=== PATIENT | male | born 1945 | race Caucasian/White ===

== ENCOUNTER → 2016-12-17 | Outpatient (REF) | payer MEDICARE ==
[~2016-12-17] MED LIST: ALDA25TA2 PO; ALLO100T PO; ALTA1CAP3 PO; AMLO25TA PO; ATEN50TA2 PO; CIPR-249 PO; CLAR10CA3 PO; COUM2.5T17 PO; FLAG500T PO; FLON0.054; HYDR-3713 PO; LASI80TA PO; PRAV80TA2 PO; ZYLO300T4 PO
[2016-12-17 13:50] LABS: ALBUMIN 3.8 GM/DL (3.2-5.2); ALBUMIN/GLOBULIN RATIO 1.09 (1.00-1.93); BILIRUBIN,TOTAL 0.4 MG/DL (0.2-1.0); CALCIUM LEVEL 9.5 MG/DL (8.8-10.2); CREATININE FOR GFR 1.47 MG/DL (0.70-1.30); FREE T4 1.11 NG/DL (0.76-1.46); GLOMERULAR FILTRATION RATE 50.1 (>42); POTASSIUM SERUM 4.6 MEQ/L (3.5-5.1); TOTAL PROTEIN 7.3 GM/DL (6.4-8.2)
== END ==
LOC: M SFHCPLAZ 10:01
PROVIDERS: ATTEND Family Medicine
DX: I10 Essential (primary) hypertension (principal); E13.9 Other specified diabetes mellitus without complications; E78.2 Mixed hyperlipidemia

== ENCOUNTER → 2017-04-10 | Outpatient (REF) | payer MEDICARE ==
[2017-04-10 13:52] LABS: ALBUMIN 3.7 GM/DL (3.2-5.2); ALBUMIN/GLOBULIN RATIO 1.03 (1.00-1.93); ALKALINE PHOSPHATASE 94 U/L (45-117); ALT/SGPT 25 U/L (12-78); ANION GAP 7 MEQ/L (8-16); AST/SGOT 25 U/L (7-37); BILIRUBIN,TOTAL 0.5 MG/DL (0.2-1.0); BLOOD UREA NITROGEN 37 MG/DL (7-18); CALCIUM LEVEL 9.4 MG/DL (8.8-10.2); CARBON DIOXIDE LEVEL 33 MEQ/L (21-32); CHLORIDE LEVEL 100 MEQ/L (98-107); CREATININE FOR GFR 1.59 MG/DL (0.70-1.30); GLOMERULAR FILTRATION RATE 45.8 (>42); GLUCOSE, FASTING 129 MG/DL (70-100); POTASSIUM SERUM 4.2 MEQ/L (3.5-5.1); SODIUM LEVEL 140 MEQ/L (136-145); TOTAL PROTEIN 7.3 GM/DL (6.4-8.2)
[2017-04-10 14:14] LABS: ESTIMATED AVERAGE GLUCOSE 163 MG/DL (60-110); HEMOGLOBIN A1c 7.3 %
== END ==
LOC: M SFHCPLAZ 09:35
DX: E11.22 Type 2 diabetes mellitus with diabetic chronic kidney disease (principal); Z12.11 Encounter for screening for malignant neoplasm of colon
CPT/HCPCS: 80053

== ENCOUNTER 2017-05-16 10:59 | Day surgery (SDC) | payer MEDICARE ==
[~2017-05-16 10:59] MED LIST changes: -ALDA25TA2 PO; -ALLO100T PO; -ALTA1CAP3 PO; -AMLO25TA PO; -ATEN50TA2 PO; -CIPR-249 PO; -CLAR10CA3 PO; -COUM2.5T17 PO; -FLAG500T PO; -FLON0.054; -HYDR-3713 PO; -LASI80TA PO; +LIDOCAINE 2% MDV 20 ML VIAL As Ordered; -PRAV80TA2 PO; +PROPOFOL 200 MG/20 ML VIAL As Ordered; -ZYLO300T4 PO
[2017-05-16] MEDS: NS 1,000 ML IV (12:35)
== END 2017-05-16 14:30 | disposition home or self-care (01) ==
LOC: M OPP 10:59
DX: R19.5 Other fecal abnormalities (principal); K62.5 Hemorrhage of anus and rectum; K62.1 Rectal polyp; K57.30 Diverticulosis of large intestine without perforation or abscess without bleeding; I48.91 Unspecified atrial fibrillation; I11.0 Hypertensive heart disease with heart failure; I50.9 Heart failure, unspecified; E78.5 Hyperlipidemia, unspecified; E11.9 Type 2 diabetes mellitus without complications; M10.9 Gout, unspecified; M19.90 Unspecified osteoarthritis, unspecified site; M54.9 Dorsalgia, unspecified; F32.9 Major depressive disorder, single episode, unspecified; I63.9 Cerebral infarction, unspecified; G47.8 Other sleep disorders; G47.30 Sleep apnea, unspecified; R06.83 Snoring; E66.9 Obesity, unspecified; Z88.8 Allergy status to other drugs, medicaments and biological substances; Z88.0 Allergy status to penicillin; Z79.01 Long term (current) use of anticoagulants; Z79.899 Other long term (current) drug therapy; Z79.84 Long term (current) use of oral hypoglycemic drugs; Z80.8 Family history of malignant neoplasm of other organs or systems; Z80.42 Family history of malignant neoplasm of prostate
CPT/HCPCS: 45385

== ENCOUNTER → 2017-09-16 | Outpatient (REF) | payer MEDICARE ==
[2017-09-16 12:04] LABS: ANION GAP 10 MEQ/L (8-16); BLOOD UREA NITROGEN 28 MG/DL (7-18); CALCIUM LEVEL 8.8 MG/DL (8.8-10.2); CARBON DIOXIDE LEVEL 30 MEQ/L (21-32); CHLORIDE LEVEL 105 MEQ/L (98-107); CREATININE FOR GFR 1.53 MG/DL (0.70-1.30); GLOMERULAR FILTRATION RATE 47.7 (>42); GLUCOSE, FASTING 111 MG/DL (70-100); POTASSIUM SERUM 3.7 MEQ/L (3.5-5.1); SODIUM LEVEL 145 MEQ/L (136-145); URIC ACID 8.2 MG/DL (3.5-7.2)
[2017-09-16 13:19] LABS: ESTIMATED AVERAGE GLUCOSE 166 MG/DL (60-110); HEMOGLOBIN A1c 7.4 %
[2017-09-16 14:12] LABS: CREATININE, URINE 34.7 MG/DL; MALB URINE SIEMENS 16.8 MG/L; MAU/CREAT RATIO 48.4 MCG/MG (0.0-30.0)
== END ==
LOC: M SFHCPLAZ 08:29
DX: E11.29 Type 2 diabetes mellitus with other diabetic kidney complication (principal); N18.3 Chronic kidney disease, stage 3 (moderate)
CPT/HCPCS: 84550

== ENCOUNTER 2018-07-28 07:40 | Emergency (ER) | payer MEDICARE ==
[~2018-07-28] VITALS: Ht 172.7 cm; Wt 161.7 kg
[~2018-07-28 07:40] MED LIST changes: +ALDA25TA2 PO; +ALLO100T PO; +ALTA1CAP3 PO; +AMLO25TA PO; +ATEN50TA2 PO; +CIPR-249 PO; +CLAR10CA3 PO; +COUM2.5T17 PO; +FLAG500T PO; +FLON0.054; +HYDR-3713 PO; +LASI80TA3 PO; -LIDOCAINE 2% MDV 20 ML VIAL As Ordered; +PRAV80TA2 PO; -PROPOFOL 200 MG/20 ML VIAL As Ordered; +ZYLO300T6 PO
[2018-07-28] MEDS ORDERED: METF500T4 (07:50)
[2018-07-28] MEDS ORDERED: METO1TAB7 (07:50)
--- NOTE | 2018-07-28 09:10 | REP ---
Soft-tissue neck ultrasound: History: Posterior neck swelling for multiple years, worse times 1 week. No comparison imaging. Sonographic findings: Scanning in the left posterior neck in the region of the palpable painful area demonstrates a 3.1 x 2.1 x 2.6 cm heterogeneous somewhat hypoechoic solid lesion without internal Doppler flow. There are several internal echogenic foci suggesting possible calcifications. There is mild wall irregularity. The adjacent fat appears hyperechoic suggesting inflammation. There is enhanced through transmission. Impression: 3.1 cm sonographically solid lesion. No flow seen. Possibilities include sebaceous cyst, possibly infected sebaceous cyst. Possibly Abscess. Less likely enlarged lymph node. Electronically Signed by Trung Bernal MD 07/28/2018 07:12 P
[2018-07-28 09:40] LABS: HEMATOCRIT 44.5 % (42.0-52.0); MEAN CORPUSCULAR HEMOGLOBIN 29.4 pg (27.0-33.0); MEAN CORPUSCULAR HGB CONC 31.5 g/dl (32.0-36.5); MEAN CORPUSCULAR VOLUME 93.3 fl (80.0-96.0); PLATELET COUNT, AUTOMATED 289 10^3/uL (150-450); RED BLOOD COUNT 4.77 10^6/uL (4.30-6.10); WHITE BLOOD COUNT 8.5 10^3/uL (4.0-10.0)
[2018-07-28 09:52] LABS: INR 2.05; PROTHROMBIN TIME 23.5 SECONDS (12.1-14.4)
[2018-07-28 09:53] LABS: PARTIAL THROMBOPLASTIN TIME 39.7 SECONDS (25.4-37.6)
[2018-07-28 10:21] LABS: CALCIUM LEVEL 9.3 MG/DL (8.8-10.2); CREATININE FOR GFR 1.51 MG/DL (0.70-1.30); GLOMERULAR FILTRATION RATE 48.3 (>42); POTASSIUM SERUM 3.9 MEQ/L (3.5-5.1)
[2018-07-28] MEDS ORDERED: ISOVUE-370 76% 100ML VIAL (Q9967) As Ordered ONE (10:23)
[2018-07-28] MEDS ORDERED: CLEO300C2 PO (11:10)
--- NOTE | 2018-07-28 11:16 | REP ---
CT NECK WITH CONTRAST: HISTORY: Left posterior neck mass. CONTRAST: Isovue 370, 75 mL. A BB was placed on the left side of the neck at the level of the foramen magnum. The naso-, yonis-, and hypopharynx, larynx and subglottic trachea are normal in appearance. The salivary and thyroid glands are normal in size and density. A ring enhancing mass is present in the left posterior subcutaneous tissue at the level of the C2 vertebral body. The mass measures 2.8 cm in transverse by 2.7 cm in AP by 3.2 cm in cephalocaudal dimensions. A small amount of surrounding edema is present. Small lymph nodes less than 1 cm in size are present in the internal jugular chains, posterior triangles, and submandibular areas. Atherosclerotic calcification is present at the carotid bifurcations. Degenerative change is present in the cervical spine. The lung apices are clear. The visualized sinuses are clear. IMPRESSION: There is a 3.2 cm ring enhancing mass in the left posterior subcutaneous tissue at the level of the C2 vertebral body. This may represent an infected sebaceous cyst, necrotic lymph node, or less likely neoplasm. Electronically Signed by Fadi Samuel MD 07/28/2018 11:18 A
[2018-07-28 11:22] VITALS: BP 118/70
--- NOTE | 2018-07-29 20:56 | ED PDOC ---
Post-Departure Follow-Up dr radha garcia and dr bruec faxed formal report of ct neck for fu raquelg Ren Cueto MD July 29, 2018 20:56
== END 2018-07-28 11:23 | disposition home or self-care (01) ==
LOC: M ED 07:40
DX: L03.221 Cellulitis of neck (principal)
CPT/HCPCS: 70491; 76536; 80048; 85027; 85610; 85730; 99284; Q9967

== ENCOUNTER 2018-08-02 15:41 | Emergency (ER) | payer MEDICARE ==
[~2018-08-02] VITALS: Ht 172.7 cm; Wt 163.6 kg
[~2018-08-02 15:41] MED LIST changes: +CLEO300C2 PO; +METF500T4; +METO1TAB7
[2018-08-02] MEDS ORDERED: CLIN300C5 (15:54)
[2018-08-02] MEDS ORDERED: LIDOCAINE 1% MDV 20ML VIAL SC ONE (16:30)
[2018-08-02 17:38] VITALS: BP 160/76
== END 2018-08-02 17:39 | disposition home or self-care (01) ==
LOC: M ED 15:41
DX: L02.11 Cutaneous abscess of neck (principal); I48.91 Unspecified atrial fibrillation; I10 Essential (primary) hypertension; E78.9 Disorder of lipoprotein metabolism, unspecified; M54.9 Dorsalgia, unspecified; F32.9 Major depressive disorder, single episode, unspecified; G47.30 Sleep apnea, unspecified; Z86.73 Personal history of transient ischemic attack (TIA), and cerebral infarction without residual deficits; Z79.899 Other long term (current) drug therapy; Z79.01 Long term (current) use of anticoagulants; Z79.84 Long term (current) use of oral hypoglycemic drugs; Z79.2 Long term (current) use of antibiotics; Z88.0 Allergy status to penicillin; Z88.8 Allergy status to other drugs, medicaments and biological substances

== ENCOUNTER 2018-08-04 16:29 | Emergency (ER) | payer MEDICARE ==
[~2018-08-04] VITALS: Ht 172.7 cm; Wt 154.6 kg
[~2018-08-04 16:29] MED LIST changes: +CLIN300C5
[2018-08-04 19:41] VITALS: BP 186/76
== END 2018-08-04 19:43 | disposition home or self-care (01) ==
LOC: M ED 16:29
DX: Z48.00 Encounter for change or removal of nonsurgical wound dressing (principal); L02.11 Cutaneous abscess of neck; I50.9 Heart failure, unspecified; I10 Essential (primary) hypertension; E11.9 Type 2 diabetes mellitus without complications; E78.00 Pure hypercholesterolemia, unspecified; Z79.84 Long term (current) use of oral hypoglycemic drugs; Z79.01 Long term (current) use of anticoagulants; Z79.899 Other long term (current) drug therapy; Z88.0 Allergy status to penicillin; Z88.8 Allergy status to other drugs, medicaments and biological substances

== ENCOUNTER 2018-08-09 12:51 | Emergency (ER) | payer MEDICARE ==
[~2018-08-09] VITALS: Ht 172.7 cm; Wt 161.8 kg
[2018-08-09 12:51] VITALS: BP 162/92
== END 2018-08-09 16:27 | disposition home or self-care (01) ==
LOC: M ED 12:51
DX: Z48.00 Encounter for change or removal of nonsurgical wound dressing (principal); L02.11 Cutaneous abscess of neck

== ENCOUNTER 2018-08-09 17:50 | Emergency (ER) | payer MEDICARE ==
[~2018-08-09] VITALS: Ht 172.7 cm; Wt 161.9 kg
[2018-08-09 17:50] VITALS: BP 157/72
== END 2018-08-09 18:44 | disposition home or self-care (01) ==
LOC: M ED 17:50
DX: Z48.00 Encounter for change or removal of nonsurgical wound dressing (principal); L02.11 Cutaneous abscess of neck

== ENCOUNTER 2018-08-20 05:46 | Day surgery (SDC) | payer MEDICARE ==
[~2018-08-20] VITALS: Ht 172.7 cm; Wt 154.2 kg
[2018-08-20 06:51] LABS: INR 1.38; PROTHROMBIN TIME 17.2 SECONDS (12.1-14.4)
[2018-08-20] MEDS ORDERED: ONDANSETRON 4MG/2ML VIAL (J2405) As Ordered ONE (07:10)
[2018-08-20] MEDS ORDERED: PROPOFOL 200 MG/20 ML VIAL As Ordered ONE (07:10)
[2018-08-20] MEDS ORDERED: LIDOCAINE 2% INJ 100 MG/5 ML SDV (FOR ANES.) As Ordered ONE (07:10)
[2018-08-20] MEDS ORDERED: KETAMINE HCL 200 MG/20 ML VIAL As Ordered ONE (07:13)
[2018-08-20] MEDS ORDERED: MIDAZOLAM INJ 2 MG/2 ML VIAL (J2250) As Ordered ONE (07:14)
[2018-08-20] MEDS ORDERED: LIDOCAINE W/EPINEPHRINE 1% 20ML VIAL As Ordered ONE (07:14)
[2018-08-20] MEDS ORDERED: BACITRACIN OINT 30GM As Ordered ONE (08:51)
[2018-08-20 09:39] VITALS: BP 140/69
--- NOTE | 2018-08-20 10:34 | RO ---
DATE OF SURGERY: 08/20/2018 PREOPERATIVE DIAGNOSES: Patient with multiple strokes on warfarin to prevent further strokes and also with diabetes with left posterior neck abscess due to large epidermal inclusion cyst. POSTOPERATIVE DIAGNOSES: Patient with multiple strokes on warfarin to prevent further strokes and also with diabetes with left posterior neck abscess due to large epidermal inclusion cyst. OPERATION PERFORMED: Excision of left posterior cyst compatible with infected epidermal cyst approximately [address] scan. SURGEON: Yonathan Cristobal Jr., MD ANESTHESIA: Monitored anesthesia care (MAC) local with 1% lidocaine and 1:100,000 epinephrine. Approximately total of 10 mL was used. INDICATIONS FOR PROCEDURE: Patient with left neck mass compatible with epidermal inclusion cyst, also with previous purulent discharge, status post incision and drainage (I and D) in the emergency room, on Coumadin and cannot come off of Coumadin because of high risk of stroke. PROCEDURE IN DETAIL: With the patient in the semi-sitting position with the head turned to the right, and after time-out was performed, the area around the left posterior neck was shaved with an electric shaver, then alcohol was applied, and then approximately 8 mL of 1% lidocaine 1:100,000 epinephrine was placed over the area after the patient had been given a small amount of Versed by the traffic or system dispatcher. After this was done, the patient was prepped and draped in usual fashion. A 1020 eye drape was applied followed by towels and a half sheet because of the patient being on the Coumadin. The Bovie was used through the majority of the case and then with settings at 40/40. The cutting was used to go through the skin in an elliptical fashion around the area and then cautery as necessary. This was bluntly dissected and cauterized down to the posterior superficial aspect of the neck muscles where the cyst abutted. This was opened up. There was a small amount of purulent discharge, which was cultured, sent for a Gram stain, aerobic and anaerobic, but looked much less infected than previously, and the patient had been previously on clindamycin. At this point, the rest of the sac was completely excised in its entirety, and the excision site was approximately 3.5 to 4 cm. Once this was completely excised and the fat contents were sent along with the adipose tissue that was around it in inflammation, the area was copiously irrigated with saline and closed deeply with the fat with 3-0 chromic followed by a Melanie drain quarter-inch placed in the area, as well as interrupted 4-0 nylon stitches. At this point, bacitracin ointment was applied, followed by an Opsite, and then fluffs. There were no problems. No complications. ESTIMATED BLOOD LOSS: Was less than 1 mL. The patient was sent back to isolation because of previous bedbugs which the patient had, his house cleaned and his mattress cleaned and his chair changed, and Adult Protective Services had come out to help, and his daughter was aware. There were no problems. Again, no complications.
== END 2018-08-20 09:38 | disposition home or self-care (01) ==
LOC: M SDC 05:46
PROVIDERS: ATTEND Otolaryngology
DX: L72.0 Epidermal cyst (principal); I48.91 Unspecified atrial fibrillation; I10 Essential (primary) hypertension; E11.9 Type 2 diabetes mellitus without complications; E78.00 Pure hypercholesterolemia, unspecified; M16.11 Unilateral primary osteoarthritis, right hip; M54.5 Low back pain; L85.3 Xerosis cutis; N18.9 Chronic kidney disease, unspecified; R06.83 Snoring; M10.9 Gout, unspecified; Z88.0 Allergy status to penicillin; Z88.8 Allergy status to other drugs, medicaments and biological substances; Z79.899 Other long term (current) drug therapy; Z79.01 Long term (current) use of anticoagulants; Z79.84 Long term (current) use of oral hypoglycemic drugs; Z96.1 Presence of intraocular lens
CPT/HCPCS: 11420; 36415; 85610; 87070; 87075; 87076; 87205; 88304; J2250; J2405

== ENCOUNTER → 2019-01-06 | Outpatient (REF) | payer MEDICARE ==
[~2019-01-06] MED LIST changes: +METF-791; -METF500T4
[2019-01-06 16:11] LABS: BLOOD UREA NITROGEN 36 MG/DL (7-18); CALCIUM LEVEL 9.1 MG/DL (8.8-10.2); CARBON DIOXIDE LEVEL 31 MEQ/L (21-32); CHLORIDE LEVEL 102 MEQ/L (98-107); CHOLESTEROL LEVEL 187 MG/DL (<200); CHOLESTEROL RISK RATIO 4.675 (<5); CREATININE FOR GFR 1.67 MG/DL (0.70-1.30); GLUCOSE, FASTING 190 MG/DL (70-100); HDL CHOLESTEROL 40 MG/DL (>40); NON-HDL-C 147 MG/DL; POTASSIUM SERUM 4.2 MEQ/L (3.5-5.1); SODIUM LEVEL 139 MEQ/L (136-145); TRIGLYCERIDES LEVEL 418 MG/DL (<150); URIC ACID 6.7 MG/DL (3.5-7.2)
[2019-01-06 16:30] LABS: MALB URINE SIEMENS 58.7 MG/L; MAU/CREAT RATIO 81.5 MCG/MG (0.0-30.0)
[2019-01-06 19:38] LABS: HEMOGLOBIN A1c 7.6 %
== END ==
LOC: M SFHCPLAZ 13:51
PROVIDERS: ATTEND Family Medicine
DX: E11.65 Type 2 diabetes mellitus with hyperglycemia (principal); E11.22 Type 2 diabetes mellitus with diabetic chronic kidney disease; E78.2 Mixed hyperlipidemia; I12.9 Hypertensive chronic kidney disease with stage 1 through stage 4 chronic kidney disease, or unspecified chronic kidney disease; N18.3 Chronic kidney disease, stage 3 (moderate); M10.9 Gout, unspecified

== ENCOUNTER 2019-03-01 20:57 | Emergency (ER) | payer MEDICARE ==
[~2019-03-01] VITALS: Ht 172.7 cm; Wt 154.6 kg
--- NOTE | 2019-03-01 22:02 | REPVR ---
PROCEDURE INFORMATION: Exam: CT Head Without Contrast Exam date and time: 03/01/2019 9:16 PM Age: 73 years old Clinical history: Injury or trauma; Fall; Initial encounter; Blunt trauma (contusions or hematomas); Additional info: Head injury on thinners TECHNIQUE: Imaging protocol: Computed tomography of the head without contrast. Axial and coronal reformatted images were created and reviewed. Radiation optimization: All CT scans at this facility use at least one of these dose optimization techniques: automated exposure control; mA and/or kV adjustment per patient size (includes targeted exams where dose is matched to clinical indication); or iterative reconstruction. COMPARISON: Thyroid, ST head+neck US 07/28/2018 8:30 AM FINDINGS: Brain: Left parietal and left cerebellar encephalomalacia, consistent with remote ischemia. Patchy areas of hypoattenuation in the periventricular and subcortical white matter, consistent with chronic small vessel ischemic disease. No CT evidence of acute intracranial hemorrhage or acute territorial infarction. No significant mass effect or midline shift. Basal cisterns patent. Ventricles: Prominence of the cortical sulci, cisterns and ventricular system, consistent with cerebral and cerebellar volume loss. Bones/joints: No acute osseous abnormality. Sinuses: Minimal ethmoid mucosal thickening. Mastoid air cells: Grossly unremarkable. Soft tissues: Grossly unremarkable. Vasculature: Calcific atherosclerotic disease in the cavernous internal carotid arteries, as well as the vertebro-basilar system. IMPRESSION: 1. No CT evidence of acute intracranial pathology. 2. Additional findings, as above. Electronically signed by: Frederic Arrington On 03/01/2019 22:01:45 PM
--- NOTE | 2019-03-01 22:05 | REPVR ---
PROCEDURE INFORMATION: Exam: CT Cervical Spine Without Contrast Exam date and time: 03/01/2019 9:16 PM Age: 73 years old Clinical history: Injury or trauma; Fall; Initial encounter; Blunt trauma TECHNIQUE: Imaging protocol: Computed tomography images of the cervical spine without contrast. Axial, coronal and sagittal reformatted images were created and reviewed. Radiation optimization: All CT scans at this facility use at least one of these dose optimization techniques: automated exposure control; mA and/or kV adjustment per patient size (includes targeted exams where dose is matched to clinical indication); or iterative reconstruction. COMPARISON: CT Neck with contrast 07/28/2018 10:26 AM FINDINGS: Vertebrae: Osteopenia. Straightening of the normal cervical lordosis. Alignment anatomic. Mild levoscoliosis. No CT evidence of acute fracture, dislocation or subluxation. Vertebral body heights maintained. Discs/Spinal canal/Neural foramina: Mild multilevel degenerative changes, characterized by disc space narrowing, osteophytosis and uncovertebral and facet joint hypertrophy. No significant spinal canal or neural foraminal narrowing. Soft tissues: Grossly unremarkable. Lungs: Grossly unremarkable. IMPRESSION: 1. No CT evidence of acute cervical spine traumatic injury. 2. Additional findings, as above. Electronically signed by: Frederic Arrington On 03/01/2019 22:05:04 PM
--- NOTE | 2019-03-01 22:11 | REPVR ---
PROCEDURE INFORMATION: Exam: CT Chest Without Contrast Exam date and time: 03/01/2019 9:16 PM Age: 73 years old Clinical history: Injury or trauma; Fall; Initial encounter; Blunt trauma (contusions or hematomas) TECHNIQUE: Imaging protocol: Computed tomography of the chest without contrast. Axial, coronal and sagittal reformatted images were created and reviewed. Radiation optimization: All CT scans at this facility use at least one of these dose optimization techniques: automated exposure control; mA and/or kV adjustment per patient size (includes targeted exams where dose is matched to clinical indication); or iterative reconstruction. COMPARISON: No relevant prior studies available. FINDINGS: Lungs: Mild linear stranding and groundglass, likely due to atelectasis and/or scarring. Mild subsegmental consolidation in the dependent left lower lobe, also likely secondary to atelectasis and/or scarring. Pleural space: Unremarkable. No pneumothorax. No pleural effusion. Heart: Mild cardiomegaly. No pericardial effusion. Mediastinum: Small hiatal hernia. Aorta: Mild atherosclerotic disease. No aneurysm. Lymph nodes: No pathologically enlarged lymph nodes. Bones/joints: No acute osseous abnormality. Osteopenia. Degenerative changes. Mild dextroscoliosis. Soft tissues: Unremarkable. IMPRESSION: 1. Limited noncontrast examination without CT evidence of acute intrathoracic traumatic injury. 2. Additional findings, as above. Electronically signed by: Frederic Arrington On 03/01/2019 22:10:49 PM
--- NOTE | 2019-03-01 22:26 | REPVR ---
PROCEDURE INFORMATION: Exam: CT Abdomen And Pelvis Without Contrast Exam date and time: 03/01/2019 9:16 PM Age: 73 years old Clinical history: Injury or trauma; Fall; Initial encounter; Blunt; Generalized TECHNIQUE: Imaging protocol: Computed tomography of the abdomen and pelvis without contrast. Axial, coronal and sagittal reformatted images were created and reviewed. Radiation optimization: All CT scans at this facility use at least one of these dose optimization techniques: automated exposure control; mA and/or kV adjustment per patient size (includes targeted exams where dose is matched to clinical indication); or iterative reconstruction. COMPARISON: CT ABD PELVIS WITH CONTRAST 01/13/2014 10:07 AM FINDINGS: Mediastinum: Small hiatal hernia. Liver: Mild hepatomegaly. 1.7 x 1.2 cm cyst in the hepatic dome on the right. Gallbladder and bile ducts: No radiodense gallstones. No biliary ductal dilatation. Pancreas: Unremarkable. Spleen: Unremarkable. Adrenals: 3 x 1.9 cm right adrenal myelolipoma. Mild nonspecific left adrenal nodularity, similar to prior. Kidneys and ureters: Bilateral renal cysts, measuring up to 3.1 x 3 cm on the right and 3.8 x 3.7 cm on the left. Nonobstructing left renal calculus. No hydronephrosis. Stomach and bowel: Moderate amount of retained stool in the colon. Scattered colonic diverticula without evidence of diverticulitis. No obstruction. No bowel wall thickening. No pneumatosis. Appendix: Findings suggestive of prior appendectomy. Intraperitoneal space: No free fluid. No organized fluid collection. No free air. Vasculature: Mild to moderate atherosclerotic disease. Bilateral common iliac artery aneurysms, measuring up to 1.8 cm on the left and 1.7 cm on the right. No aortic aneurysm. Lymph nodes: No pathologically enlarged lymph nodes. Bladder: Mild circumferential urinary bladder wall thickening, likely secondary to underdistention. Reproductive: Unremarkable. Bones/joints: No acute osseous abnormality. Osteopenia. Degenerative changes. Soft tissues: Small, fat-containing left inguinal hernia. IMPRESSION: 1. Limited noncontrast examination without CT evidence of acute intra-abdominal or pelvic traumatic injury. 2. Additional findings, as above. Electronically signed by: Frederic Arrington On 03/01/2019 22:26:23 PM
[2019-03-01 23:00] VITALS: BP 149/68
[2019-03-01] MEDS ORDERED: NORCO 5/325MG TABLET (BULK FOR ED) PO ONE (23:00)
[2019-03-01] MEDS ORDERED: NORCO, ANEXSIA 5/325MG TABLET (HYDROcodone/ACETAMINOPHEN) PO ONE (23:00)
== END 2019-03-01 23:26 | disposition home or self-care (01) ==
LOC: M ED 20:57
DX: S20.229A Contusion of unspecified back wall of thorax, initial encounter (principal); W01.198A Fall on same level from slipping, tripping and stumbling with subsequent striking against other object, initial encounter; R16.0 Hepatomegaly, not elsewhere classified; N28.1 Cyst of kidney, acquired; I11.9 Hypertensive heart disease without heart failure; I63.9 Cerebral infarction, unspecified; G47.33 Obstructive sleep apnea (adult) (pediatric); Z88.0 Allergy status to penicillin; Z79.01 Long term (current) use of anticoagulants; Z79.899 Other long term (current) drug therapy

== ENCOUNTER → 2019-05-08 | Outpatient (CLI) | payer MEDICARE ==
[2019-05-08 16:11] LABS: INR 1.91; PROTHROMBIN TIME 21.6 SECONDS (11.8-14.0)
[2019-05-08 16:15] LABS: HEMOGLOBIN A1c 7.8 %
[2019-05-08 16:21] LABS: ALBUMIN 3.8 GM/DL (3.2-5.2); BILIRUBIN,TOTAL 0.4 MG/DL (0.2-1.0); CALCIUM LEVEL 9.7 MG/DL (8.8-10.2); CHOLESTEROL RISK RATIO 5.184 (<5); CREATININE FOR GFR 1.42 MG/DL (0.70-1.30); GLOMERULAR FILTRATION RATE 51.9 (>42); POTASSIUM SERUM 4.2 MEQ/L (3.5-5.1); TOTAL PROTEIN 7.6 GM/DL (6.4-8.2)
[2019-05-08 16:28] LABS: CREATININE, URINE 31.4 MG/DL; MALB URINE SIEMENS 42.3 MG/L; MAU/CREAT RATIO 134.7 MCG/MG (0.0-30.0)
== END ==
LOC: M PLALAB 11:55
PROVIDERS: ATTEND Nurse Practitioner Family
DX: Z51.81 Encounter for therapeutic drug level monitoring (principal); E11.65 Type 2 diabetes mellitus with hyperglycemia; E78.2 Mixed hyperlipidemia; Z79.899 Other long term (current) drug therapy

== ENCOUNTER → 2020-02-02 | Outpatient (REF) | payer MEDICARE ==
[~2020-02-02] MED LIST changes: -METF-791; +METF-838
[2020-02-02 14:11] LABS: INR 1.51; PROTHROMBIN TIME 18.5 SECONDS (12.5-14.3)
[2020-02-02 14:15] LABS: ALBUMIN 3.8 GM/DL (3.2-5.2); BILIRUBIN,TOTAL 0.5 MG/DL (0.2-1.0); CALCIUM LEVEL 9.3 MG/DL (8.8-10.2); CHOLESTEROL RISK RATIO 5.75 (<5); CREATININE FOR GFR 1.58 MG/DL (0.70-1.30); FREE T4 1.32 NG/DL (0.76-1.46); GLOMERULAR FILTRATION RATE 45.7 (>42); POTASSIUM SERUM 3.6 MEQ/L (3.5-5.1); THYROID STIMULATING HORMONE 1.29 uIU/ML (0.358-3.740); TOTAL 25(OH) VITAMIN D 15.1 NG/ML (30.0-100.0); TOTAL PROTEIN 7.1 GM/DL (6.4-8.2); URIC ACID 9.1 MG/DL (3.5-7.2)
[2020-02-02 14:39] LABS: MAU/CREAT RATIO 272.5 MCG/MG (0.0-30.0)
[2020-02-02 14:48] LABS: HEMOGLOBIN A1c 6.7 %
== END ==
LOC: M SFHCPLAZ 11:14
PROVIDERS: ATTEND Nurse Practitioner Family
DX: E11.65 Type 2 diabetes mellitus with hyperglycemia (principal); I50.9 Heart failure, unspecified; E78.2 Mixed hyperlipidemia; M10.9 Gout, unspecified; E55.9 Vitamin D deficiency, unspecified; Z51.81 Encounter for therapeutic drug level monitoring

== ENCOUNTER 2020-02-11 21:40 | Inpatient (IN) | payer MEDICARE ==
[~2020-02-11] VITALS: Ht 172.7 cm; Wt 169.0 kg
[2020-02-11] MEDS: HumaLOG INSULIN (NovoLOG) PER UNIT SC SCH (03:29)
[~2020-02-11 21:40] MED LIST changes: -CLIN300C5; +CLIN300C6
[2020-02-11 22:56] LABS: BASO # 0.1 10^3/uL (0.0-0.2); BASO % 0.7 % (0.0-1.0); EOS # 0.1 10^3/uL (0.0-0.5); EOS % 0.6 % (0.0-3.0); HEMATOCRIT 50.1 % (42.0-52.0); HEMOGLOBIN 14.8 g/dl (13.5-17.5); LYMPH # 2.1 10^3/uL (1.5-5.0); LYMPH % 17.8 % (24.0-44.0); MEAN CORPUSCULAR HGB CONC 29.5 g/dl (32.0-36.5); MEAN CORPUSCULAR VOLUME 94.9 fl (80.0-96.0); MONO # 0.5 10^3/uL (0.0-0.8); MONO % 4.6 % (0.0-5.0); NEUTROPHILS % 75.9 % (36.0-66.0); PLATELET COUNT, AUTOMATED 305 10^3/uL (150-450); RED BLOOD COUNT 5.28 10^6/uL (4.30-6.10); WHITE BLOOD COUNT 11.8 10^3/uL (4.0-10.0)
--- NOTE | 2020-02-11 23:20 | REPVR ---
PROCEDURE INFORMATION: Exam: XR Chest, 1 View Exam date and time: 02/11/2020 10:55 PM Age: 74 years old Clinical indication: Cough and dyspnea; Additional info: Dyspnea/cough TECHNIQUE: Imaging protocol: XR of the chest Views: 1 view. COMPARISON: CT Chest without contrast 03/01/2019 9:20 PM FINDINGS: Lungs: There is decreased inflation of the lungs. Vascular congestion with bilateral perihilar and infrahilar infiltrates. Pleural space: Question of small bilateral pleural effusions. Heart/Mediastinum: Probable mild cardiomegaly. Bones/joints: Unremarkable. Soft tissues: There are generous overlying soft tissues. IMPRESSION: Mild cardiomegaly with evidence of mild congestive failure or fluid overload. Electronically signed by: Gary Zarate On 02/11/2020 23:20:04 PM
[2020-02-11 23:43] LABS: ALBUMIN 3.6 GM/DL (3.2-5.2); BILIRUBIN,DIRECT 0.2 MG/DL (0.0-0.2); BILIRUBIN,TOTAL 0.5 MG/DL (0.2-1.0); CALCIUM LEVEL 8.5 MG/DL (8.8-10.2); CK-MB VALUE MASS 1.4 NG/ML (<3.6); CREATININE FOR GFR 1.58 MG/DL (0.70-1.30); GLOMERULAR FILTRATION RATE 45.7 (>42); MB/CK RELATIVE INDEX 2.22 (< OR =4); POTASSIUM SERUM 3.5 MEQ/L (3.5-5.1); THYROID STIMULATING HORMONE 1.93 uIU/ML (0.358-3.740); THYROXINE (T4) 9.3 UG/DL (4.5-12.0); TOTAL PROTEIN 7.2 GM/DL (6.4-8.2); TROPONIN I 0.15 NG/ML (< 0.10)
[2020-02-11] MEDS ORDERED: NITROGLYCERIN 2% OINT 1 GM *U/D* PKT TOP ONE (23:45)
[2020-02-12] VITALS (24 sets, daily range): BP systolic 117–195; BP diastolic 58–134
[2020-02-12] MEDS ORDERED: DIGOXIN INJ 0.5 MG/2 ML AMP (J1160) IV STA (00:01)
[2020-02-12] MEDS ORDERED: FUROSEMIDE 40MG/4ML VIAL (J1940) IV ONE (00:15)
[2020-02-12] MEDS ORDERED: MOM 30ML SUSPENSION UDC PO PRN (01:00)
[2020-02-12] MEDS ORDERED: MAALOX 30 ML SUSP *UDC PO PRN (01:00)
[2020-02-12] MEDS ORDERED: ACETAMINOPHEN TAB 650MG DOSE (2X325MG) PO PRN (01:00)
[2020-02-12] MEDS ORDERED: ATOR40TA75 PO (01:03)
[2020-02-12] MEDS ORDERED: METO1TAB7 PO (01:03)
[2020-02-12] MEDS ORDERED: COLC0.6T47 PO (01:03)
[2020-02-12] MEDS ORDERED: TORS10TA3 PO (01:03)
[2020-02-12] MEDS ORDERED: METF-838 PO (01:11)
[2020-02-12] MEDS ORDERED: WARF-18 PO (01:11)
[2020-02-12] MEDS ORDERED: FLON1SPR (01:11)
[2020-02-12] MEDS ORDERED: RAMI1CAP26 PO (01:11)
[2020-02-12] MEDS ORDERED: PATIENT COMMENT (01:12)
--- NOTE | 2020-02-12 01:12 | HPEPDOC ---
[facility] Medical History & Physical Date of Admission Feb 12, 2020 Date of Service: Feb 12, 2020 Primary Care Physician: MELINA READ Attending Physician: ABISAI CANALES MD History and Physical CHIEF COMPLAINT: Shortness of breath HISTORY OF PRESENT ILLNESS: Patient is a 74 y/o male with a significant PMH of A-fib w/ RVR, Hx of CVAs, and HFpEF who presented to the ED complaining of worsening SOB for the past 2 weeks. Patient reports that he felt SOB 2 weeks ago, but that it wasn't effecting his daily routine at first. He states that over the last 2 weeks it has become significantly worse to the point where he gets extremely SOB walking the 40-50 feet from his front door to the elevator in his apartment building. He also r eports that the SOB seems to improve when he rests and that it has gotten much better since he arrived here. Patient admits to a cough that occasionally produces a white-rodriguez sputum. Patient denies chest pain, palpitations, abdominal pain, or wheeze. In the emergency department, patient was found to be afebrile with an irregularly irregular pulse ranging from 110s to 144 consistent with atrial f ibrillation with RVR. Patient was also noted to be hypertensive with blood pressure of 205/120 (148), and maintaining saturation of 84% on room air. 2 BC indicated a white count of 11.8, atrial predominance, H/H of 14.8/50.1. Electrolytes largely within normal limits. BUNs/creatinine of 17/1.58. Glucose of 245, alkaline phosphatase of 127 and a proBNP of 2488, increased from 1200 week prior. Initial troponin of 0.15. No ischemic changes on EKG. Patient was treated with SL nitroglycerin and 0.25 mg of digoxin. For his fluid overload, he was given a single dose of Lasix 40 mg IV. Hospitalist team was contacted but the patient for further dilation management of his atrial fibrillation with RVR in the setting of congestive heart failure. 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 REVIEW OF SYSTEMS: CONSTITUTIONAL: denies fever, chills, loss of appetite HEENT: denies, headaches, vision changes, hearing changes, sore throat CARDIOVASCULAR: denies chest pain, palpitations RESPIRATORY: admits to productive cough. denies wheeze GASTROINTESTINAL: denies abdominal pain, N/V/D/C GENITOURINARY: denies dysuria or hematuria SKIN: denies lesions or rashes MUSCULOSKELETAL: denies joint pain or weakness NEUROLOGICAL: denies numbness or tingling PSYCHIATRIC: denies depression or anxiety ENDOCRINE: denies polydipsia HEMATOLOGIC/LYMPHATIC: denies easy bruising or bleeding HOME MEDICATIONS: Please see below. PHYSICAL EXAMINATION: VITAL SIGNS:Please see below GENERAL APPEARANCE: Pt is sitting on the side of hospital bed comfortably, appears stated age, and in NAD HEENT: normocephalic, atraumatic, EOMI, MMM, no JVD or LAD appreciated CARDIOVASCULAR: Irregularly irregular rhythm, tachycardic rate, no murmurs or rubs appreciated, stigmata of chromic LE edema, 3+ pitting edema LUNGS: CTA B/L without wheezes/rhonchi/rales appreciated, decreased chest expansion B/L ABDOMEN: soft, obese, non-tender, bowel sounds present in all 4 quadrants, negative CVA tenderness EXTREMITIES: 5/5 strength in all 4 extremities, pedal pulses 2+ and equal B/L NEUROLOGICAL: PERRLA and sensation intact in all 4 extremities PSYCHIATRIC: normal mood and affect LABORATORY DATA: See below. IMAGING: Chest x-ray (02/11/20): Mild cardiomegaly with evidence of mild congestive heart failure or fluid overload. MICROBIOLOGY: Blood cultures (02/11/20): Pending ASSESSMENT: Patient is a 74 y/o male with a PMH of A-fib w/ RVR, Hx of CVAs, and HFpEF who presented to the ED complaining of worsening SOB for the past 2 weeks, was found to have initial troponin of 0.15, a proBNP of 2488, and BP of 205/120 (148). PLAN: #Atrial Fibrillation, with RVR -possible etiologies include: thanksgiving meal causing fluid overload & worsening CHF, ELAINA -TSH, Free T4 normal -H2FPEF score of 7 -s/p 0.25mg digoxin in ED, HR remained in the 150s -placed on remote telemetry -on home warfarin for anticoagulation #Elevated troponin -initial troponin 0.15 -suspected 2/2 to demand -recheck troponins and EKG at 0400 02/12/20 #Congestive heart failure -pt is on home BB, thiazide diuretic, and ACEI -C/w IV Lasix -boateng catheter placed 02/12/20 -no salt diet -O2 therapy 2L -last ECHO in 2009, plan to repeat during this hospitalization #Hypertension -SBP >200 at time of admission -started on cardizem drip with parameters -holding home meds while on drip #Diabetes mellitus, type II -started on insulin sliding scale ACHS -holding home oral hyperglycemics -A1c pending #Hyperlipidemia -C/w home statin #CVA -C/w home warfarin -monitor PT/INR #Gout -C/w home colchicine #CKD, stage IIIa -needs outpatient nephrology F/U -baseline Cr 1.5 #Morbid obesity -daily weights -consider outpatient exercsie regimen and dietitian consultation #ELAINA -on home CPAP, plan for family member to bring it in CODE STATUS: Full Code DVT PROPHYLAXIS: Warfarin DISPOSITION: Anticipate >2 night stay Vital Signs Vital Signs Date Time Temp Pulse Resp B/P (MAP) Pulse Ox O2 Delivery O2 Flow Rate FiO2 02/12/20 00:00 97.7 117 18 153/70 (97) 93 02/11/20 22:04 Room Air Laboratory Data Labs 24H Laboratory Tests 2 02/11/20 22:31: Immature Granulocyte % (Auto) 0.4, Neutrophils (%) (Auto) 75.9H, Lymphocytes (%) (Auto) 17.8L, Monocytes (%) (Auto) 4.6, Eosinophils (%) (Auto) 0.6, Basophils (%) (Auto) 0.7, Neutrophils # (Auto) 9.0H, Lymphocytes # (Auto) 2.1, Monocytes # (Auto) 0.5, Eosinophils # (Auto) 0.1, Basophils # (Auto) 0.1, Nucleated Red Blood Cells % (auto) 0.0, Anion Gap 8, Glomerular Filtration Rate 45.7, Calcium Level 8.5L, Total Bilirubin 0.5, Direct Bilirubin 0.2, Aspartate Amino Transf (AST/SGOT) 18, Alanine Aminotransferase (ALT/SGPT) 21, Alkaline Phosphatase 127H, Total Creatine Kinase 63, Creatine Kinase MB 1.4, Creatine Kinase MB Relative Index 2.22, Troponin I 0.15H, HY-Cxs-J-Type Natriuretic Peptide 2488H, Total Protein 7.2, Albumin 3.6, Albumin/Globulin Ratio 1.0, Thyroid Stimulating Hormone (TSH) 1.930, Thyroxine (T4) 9.3 02/11/20 23:08: Coronavirus (COVID-19)(PCR) NEGATIVE CBC/BMP Laboratory Tests 02/11/20 22:31 Microbiology Microbiology 02/11/20 Blood Culture, Received Pending 02/11/20 Blood Culture, Received Pending Home Medications Scheduled Atorvastatin Calcium (Atorvastatin Calcium) 40 Mg Tablet, 40 MG PO QHS Colchicine (Colchicine) 0.6 Mg Tablet, 0.3 MG PO DAILY Furosemide (Lasix) 80 Mg Tab, 80 MG PO DAILY Loratadine (Claritin) 10 Mg Cap, 10 MG PO QHS Metformin HCl (Metformin HCl ER) 500 Mg Tab.er.24h, 500 MG PO QPM WITH DINNER Metoprolol Succinate (Metoprolol Succinate) 50 Mg Tab.er.24h, 50 MG PO DAILY Ramipril (Ramipril) 10 Mg Capsule, 10 MG PO DAILY Torsemide (Torsemide) 10 Mg Tablet, 10 MG PO DAILY Warfarin Sodium (Warfarin Sodium) 2.5 Mg Tablet, 2.5 MG PO QHS Scheduled PRN Fluticasone Propionate (Flonase Allergy Relief) 9.9 Ml [place].susp, 1 SPRAY NA DAILY PRN for NASAL CONGESTION Miscellaneous Medications [Patient Comment] PATIENT IS NOT A GOOD HISTORIAN. COMPLETED MED REC VIA EXTERNAL AND PREVIOUS CLINIC VISIT (02/02/2020). Allergies Coded Allergies: Penicillins (Verified Allergy, Severe, ANAPHYLACTIC, 07/28/18) spironolactone (Verified Adverse Reaction, Intermediate, INCREASES K, 02/12/20) A-FIB/CHADSVASC A-FIB History Current/History of A-Fib/PAF?: Yes Current PO Anticoag Therapy: Yes GME ATTESTATION GME ATTESTATION My faculty preceptor for this patient encounter was physically present during the encounter and was fully available. All aspects of the patient interview, examination, medical decision making process, and medical care plan development were reviewed and approved by the faculty preceptor. The faculty preceptor is aware and concurs with the plan as stated in the body of this note and will attest to such by his/her cosignature. ATTENDING NOTE TIME OF SERVICE 1225AM is a 74 yr old w a hx of afib, CVA, CKD 3, NIDDM, HTN, Diastolic CHF (H2PEF score is 6 = 90 % probability of HFpEF), chronic HTN, , ELAINA, & Class 3 obesity who presented with c/o dyspnea that worsened w exertion; he will be a dmitted for management of a fib w RVR, HTN urgency & fluid overload; his troponin is elevated but he denied having chest pain. Plan: f/u Echo & trops / f/u with PCP to discuss, diet and exercise and possibly starting Saxenda which is indicated in patients with a BMI >27 with co-existing DM as an adjunct to diet and exercise to assist with weight control and starting empagliflozin which is indicated to reduce the risk of CVD in patients with DM Rest per 's H&p KERI WILSON DO Feb 12, 2020 01:12 ABISAI CANALES MD Feb 12, 2020 05:16
[2020-02-12] MEDS ORDERED: DEXTROSE 50% 50 ML SYRINGE IV PRN (01:30)
[2020-02-12] MEDS ORDERED: GLUCOSE 4GM CHEW TABLET PO PRN (01:30)
[2020-02-12] MEDS ORDERED: GLUCAGON INJ 1MG VIAL SC PRN (01:30)
[2020-02-12 02:12] LABS: HEMOGLOBIN A1c 6.9 %
[2020-02-12] MEDS ORDERED: FLUTICASONE PROP 0.05% NASAL SPRAY 16 GM (FLONASE) PRN (02:30)
[2020-02-12] MEDS ORDERED: PILL CUTTER 1 EACH XX PRN (02:45)
[2020-02-12] MEDS ORDERED: diltiaZEM 125 MG in NS 100 ML IV SCH (03:00)
[2020-02-12] MEDS: ATORVASTATIN 20 MG TAB PO SCH ×2 (03:28→21:09)
[2020-02-12] MEDS: FUROSEMIDE 40MG/4ML VIAL (J1940) IV SCH ×4 (03:33→17:33)
[2020-02-12] MEDS ORDERED: METOPROLOL 5 MG/5 ML VIAL IV STA (04:30)
[2020-02-12 06:04] LABS: INR 2.41; PROTHROMBIN TIME 26.8 SECONDS (12.5-14.3)
--- NOTE | 2020-02-12 06:43 | ECGEPIP ---
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
[2020-02-12 06:54] LABS: PHOSPHORUS LEVEL 4.1 MG/DL (2.5-4.9); TROPONIN I 1.06 NG/ML (< 0.10)
[2020-02-12] MEDS: DOCUSATE SODIUM 100MG CAPSULE PO SCH ×2 (08:55→21:09)
[2020-02-12] MEDS: HumaLOG INSULIN (NovoLOG) PER UNIT SC SCH ×4 (08:55→21:00)
[2020-02-12] MEDS: CARVedilol 6.25 MG TAB PO SCH ×4 (08:56→23:17)
[2020-02-12] MEDS: NYSTATIN 100,000 UNITS/GM TOPICAL PWD 15 GM TOP SCH ×2 (08:56→21:11)
[2020-02-12] MEDS: COLCHICINE 0.6 MG TABLET PO SCH (08:57)
--- NOTE | 2020-02-12 09:19 | IPNPDOC ---
Date Seen The patient was seen on 02/12/20. Progress Note SUBJECTIVE: patient was seen and examined at bedside. He is comfortable in bed, states that his shortness of breath has resolved. His cardizem drip was stopped at 4 am. HR 80s but in afib. BP 150s/90s. Trop is elevated at 1.06 (up from 0.15), but the patient denies any chest pain and EKG is not showing ischemic changes. He denies palpitations, subjectve fevers or chills, n/v/d. OBJECTIVE PHYSICAL EXAMINATION: VITAL SIGNS: Please see below. GENERAL: comfortable at rest HEENT: R sided facial droop, sequela of prior CVA x 2 CARDIOVASCULAR: irregular, rate 80s. Normal S1, S2, no gallops, rubs RESPIRATORY: lungs CTAB, no wheeze, madina. ABDOMINAL: soft, obese, non tender EXTREMITIES: 2+ edema, chronic venous stasis changes, pulses 1+ NEUROLOGICAL: AAO x 3, moving all 4 extremities PSYCHOLOGICAL: calm cooperative. LABORATORY DATA, IMAGING STUDIES, MICROBIOLOGY: Please see below. Echocardiogram: ordered DVT prophylaxis ordered?: warfarin ASSESSMENT AND PLAN: Patient is a 74 y/o male with a PMH of A-fib, Hx of CVAs, and HFpEF who presented to the ED complaining of worsening SOB for the past 2 weeks, admitted for afib w RVR, hypertensive urgency and fluid overload. PROBLEMS: #afib with RVR: rate controlled, s/p cardizem drip, digoxin 0.25 mg in ED. Cardio consult, d/w Dr. Baeza. Coreg 6.25 mg q6h. Tele. Echo ordered. C/w warfarin. #Elevated trop: 0.15, to 1.06. No chest pain. No ischemic changes on EKG. Likely demand/leak 2/2 RVR and hypertensive urgency. Dr. Baeza aware, consulted. Trend trops, EKGs. #Acute CHF excarbation (type unknown): last echo 2009, repeat ordered. C/w BB, ACEi. Increase ramipril to 4x daily dosing. Diuresis with IV lasix. #Hypertensive urgency: BP improved, 150s/90. s/p cardizem drip. Increase ramipril 5 mg PO q6h. Avoid giving at same time as coreg #DM2: ISS, FSBS AC and HS. Hypoglycemic precautions. Check a1c. #HLD: c/w statin #CVA: resume home meds. on warfarin #Gout: c/w colchicine #CKD3: CR at baseline. #Obesity BMI 57.7, complicating care. #ELAINA: on home CPAP. Family will bring. #GI ppx: protonix DVT ppx: warfarin. DISPOSITION: admission expected to last > 2 midnights. Expect DC home pending medical clearance. [facility] Vital Signs/I&O Vital Signs Date Time Temp Pulse Resp B/P (MAP) Pulse Ox O2 Delivery O2 Flow Rate FiO2 02/12/20 06:16 91 137/98 (111) 93 Nasal Cannula 4.0 02/12/20 02:45 96.7 32 I&O- Last 24 Hours up to 6 AM 02/12/20 06:00 Intake Total 10 ml Output Total 100 ml Balance -90 ml Laboratory Data 24H LABS Laboratory Tests 2 02/11/20 22:30: Estimated Mean Plasma Glucose 151H, Hemoglobin A1c 6.9 02/11/20 22:31: Immature Granulocyte % (Auto) 0.4, Neutrophils (%) (Auto) 75.9H, Lymphocytes (%) (Auto) 17.8L, Monocytes (%) (Auto) 4.6, Eosinophils (%) (Auto) 0.6, Basophils (%) (Auto) 0.7, Neutrophils # (Auto) 9.0H, Lymphocytes # (Auto) 2.1, Monocytes # (Auto) 0.5, Eosinophils # (Auto) 0.1, Basophils # (Auto) 0.1, Nucleated Red Blood Cells % (auto) 0.0, Anion Gap 8, Glomerular Filtration Rate 45.7, Calcium Level 8.5L, Total Bilirubin 0.5, Direct Bilirubin 0.2, Aspartate Amino Transf (AST/SGOT) 18, Alanine Aminotransferase (ALT/SGPT) 21, Alkaline Phosphatase 127H, Total Creatine Kinase 63, Creatine Kinase MB 1.4, Creatine Kinase MB Relative Index 2.22, Troponin I 0.15H, IX-Mca-T-Type Natriuretic Peptide 2488H, Total Protein 7.2, Albumin 3.6, Albumin/Globulin Ratio 1.0, Thyroid Stimulating Hormone (TSH) 1.930, Thyroxine (T4) 9.3 02/11/20 23:08: Coronavirus (COVID-19)(PCR) NEGATIVE 02/12/20 05:32: Troponin I 1.06#H, Prothrombin Time 26.8H, Prothromb Time International Ratio 2.41, Phosphorus Level 4.1, Magnesium Level 2.1 02/12/20 07:41: Bedside Glucose (Misc Panel) 196H CBC/BMP Laboratory Tests 02/11/20 22:31 Microbiology Microbiology 02/11/20 Blood Culture, Received Pending 02/11/20 Blood Culture, Received Pending MIHAELA TRACEY MD Feb 12, 2020 09:19
[2020-02-12] MEDS: ramipriL 5 MG CAP PO SCH ×2 (09:38→18:05)
[2020-02-12] MEDS ORDERED: ramipriL 5 MG CAP PO ONE (11:30)
[2020-02-12] MEDS: WARFARIN SOD 2.5MG TAB PO SCH (17:32)
[2020-02-12] MEDS: amLODIPine 5 MG TAB PO SCH (21:10)
[2020-02-12] MEDS ORDERED: diphenhydrAMINE 25MG CAP PO ONE (23:30)
[2020-02-13] VITALS (20 sets, daily range): BP systolic 127–164; BP diastolic 65–98; O2SAT 80–97
[2020-02-13] MEDS: CARVedilol 6.25 MG TAB PO SCH ×4 (05:09→23:26)
[2020-02-13 05:19] LABS: HEMATOCRIT 48.4 % (42.0-52.0); HEMOGLOBIN 14.8 g/dl (13.5-17.5); MEAN CORPUSCULAR HEMOGLOBIN 28.7 pg (27.0-33.0); MEAN CORPUSCULAR HGB CONC 30.6 g/dl (32.0-36.5); PLATELET COUNT, AUTOMATED 313 10^3/uL (150-450); RED BLOOD COUNT 5.15 10^6/uL (4.30-6.10); WHITE BLOOD COUNT 15.9 10^3/uL (4.0-10.0)
[2020-02-13 05:33] LABS: INR 2.33; PROTHROMBIN TIME 26.1 SECONDS (12.5-14.3)
[2020-02-13 05:47] LABS: ALBUMIN 3.4 GM/DL (3.2-5.2); BILIRUBIN,TOTAL 0.5 MG/DL (0.2-1.0); CALCIUM LEVEL 9.3 MG/DL (8.8-10.2); CREATININE FOR GFR 1.51 MG/DL (0.70-1.30); GLOMERULAR FILTRATION RATE 48.2 (>42); MAGNESIUM LEVEL 2.3 MG/DL (1.8-2.4); POTASSIUM SERUM 4.1 MEQ/L (3.5-5.1); TOTAL PROTEIN 6.7 GM/DL (6.4-8.2); TROPONIN I 1.28 NG/ML (< 0.10)
--- NOTE | 2020-02-13 08:39 | REP ---
INDICATION: wbc COMPARISON: 02/11/2020 TECHNIQUE: Portable AP view of the chest FINDINGS: Examination is significantly limited and essentially nondiagnostic due to poor inspiratory effort, positioning and underpenetration. Cardiomegaly remains stable. Bibasilar opacities including possible effusions cannot be excluded. No obvious pneumothorax. IMPRESSION: Significantly limited examination. Cannot exclude lower lobe opacities/effusions. <Electronically signed by Syd Hawthorne > 02/13/20 [id number]
[2020-02-13] MEDS: HumaLOG INSULIN (NovoLOG) PER UNIT SC SCH ×4 (09:10→20:50)
[2020-02-13] MEDS: TORSEMIDE 20 MG TAB PO SCH ×2 (09:11→17:23)
[2020-02-13] MEDS: DOCUSATE SODIUM 100MG CAPSULE PO SCH ×2 (09:11→20:50)
[2020-02-13] MEDS: amLODIPine 5 MG TAB PO SCH ×2 (09:11→20:50)
[2020-02-13] MEDS: ramipriL 5 MG CAP PO SCH (09:12)
[2020-02-13] MEDS: NYSTATIN 100,000 UNITS/GM TOPICAL PWD 15 GM TOP SCH ×2 (09:12→20:51)
[2020-02-13] MEDS: COLCHICINE 0.6 MG TABLET PO SCH (09:12)
--- NOTE | 2020-02-13 12:36 | REP ---
INDICATION: BILATERAL LE swelling COMPARISON: None. TECHNIQUE: Ozuna scale and color Doppler evaluation of the bilateral lower extremities using linear high frequency transducer. FINDINGS: Ultrasound examination of the right and left lower extremity deep venous structures from the common femoral vein to the popliteal vein demonstrates normal compressibility flow and wave patterns in response to respiration and augmentation. There is no evidence for deep venous thrombosis. IMPRESSION: No evidence for deep venous thrombosis. <Electronically signed by Syd Hawthorne > 02/13/20 [id number]
[2020-02-13] MEDS: WARFARIN SOD 2.5MG TAB PO SCH (17:23)
[2020-02-13] MEDS: THERAPEUTIC BATH LOTION 240 ML BTL TOP SCH ×2 (17:27→20:51)
[2020-02-13] MEDS: ATORVASTATIN 20 MG TAB PO SCH (20:50)
[2020-02-13] MEDS ORDERED: THERAPEUTIC BATH LOTION 240 ML BTL TOP SCH (21:00)
[2020-02-13] MEDS ORDERED: AVEENO SOAP BAR TOP SCH (21:00)
[2020-02-13] MEDS ORDERED: cefTRIAXone SOD 1 GM in D5W MINI-BAG PLUS 50 ML IV SCH (22:15)
--- NOTE | 2020-02-13 22:15 | IPNPDOC ---
Date Seen The patient was seen on 02/13/20. Progress Note SUBJECTIVE: patient was seen and examined at bedside. He is comfortable in bed, states that his shortness of breath has resolved. His cardizem drip was stopped at 4 am. HR 80s but in afib. BP 150s/90s. Trop is elevated at 1.06 (up from 0.15), but the patient denies any chest pain and EKG is not showing ischemic changes. He denies palpitations, subjectve fevers or chills, n/v/d. OBJECTIVE PHYSICAL EXAMINATION: VITAL SIGNS: Please see below. GENERAL: comfortable at rest HEENT: R sided facial droop, sequela of prior CVA x 2 CARDIOVASCULAR: irregular, rate 80s. Normal S1, S2, no gallops, rubs RESPIRATORY: lungs CTAB, no wheeze, madina. ABDOMINAL: soft, obese, non tender EXTREMITIES: 2+ edema, chronic venous stasis changes, pulses 1+ NEUROLOGICAL: AAO x 3, moving all 4 extremities PSYCHOLOGICAL: calm cooperative. LABORATORY DATA, IMAGING STUDIES, MICROBIOLOGY: Please see below. Echocardiogram: ordered DVT prophylaxis ordered?: warfarin ASSESSMENT AND PLAN: Patient is a 74 y/o male with a PMH of A-fib, Hx of CVAs, and HFpEF who presented to the ED complaining of worsening SOB for the past 2 weeks, admitted for afib w RVR, hypertensive urgency and fluid overload. PROBLEMS: #afib with RVR: rate controlled, s/p cardizem drip, digoxin 0.25 mg in ED. Cardio consult, d/w Dr. Baeza. Coreg 6.25 mg q6h. Tele. Echo ordered. C/w warfarin. #Elevated trop: mX 1.28, trending down. No chest pain. No ischemic changes on EKG. Likely demand/leak 2/2 RVR and hypertensive urgency. Dr. Baeza aware, consulted. Trend trops, EKGs. #Acute CHF exacerbation (type unknown): last echo 2009, repeat ordered. C/w BB, ACEi. Increase ramipril to 4x daily dosing. Diuresis with IV lasix. #WBC count: denies dysuria. Diabetic. UA+. Ceftriaxone. #Hypertensive urgency: BP improved, 150s/90. s/p cardizem drip. Increase ramipril 5 mg PO q6h. Avoid giving at same time as coreg #DM2: ISS, FSBS AC and HS. Hypoglycemic precautions. Check a1c. #HLD: c/w statin #CVA: resume home meds. on warfarin #Gout: c/w colchicine #CKD3: CR at baseline. #Obesity BMI 57.7, complicating care. #ELAINA: on home CPAP. Family will bring. #GI ppx: protonix DVT ppx: warfarin. DISPOSITION: admission expected to last > 2 midnights. Expect DC home pending medical clearance. VS, I&O, 24H, [facility] Vital Signs/I&O Vital Signs Date Time Temp Pulse Resp B/P (MAP) Pulse Ox O2 Delivery O2 Flow Rate FiO2 02/13/20 20:50 62 140/70 02/13/20 20:00 2.0 02/13/20 19:00 91 Nasal Cannula 02/13/20 16:22 96.9 20 I&O- Last 24 Hours up to 6 AM 02/13/20 06:00 Intake Total 1260 ml Output Total 4675 ml Balance -3415 ml Laboratory Data 24H LABS Laboratory Tests 2 02/13/20 04:49: Prothrombin Time 26.1H, Prothromb Time International Ratio 2.33 02/13/20 04:50: Nucleated Red Blood Cells % (auto) 0.0, Anion Gap 7L, Glomerular Filtration Rate 48.2, Calcium Level 9.3, Magnesium Level 2.3, Total Bilirubin 0.5, Aspartate Amino Transf (AST/SGOT) 20, Alanine Aminotransferase (ALT/SGPT) 20, Alkaline Phosphatase 102, Troponin I 1.28H, Total Protein 6.7, Albumin 3.4, Albumin/Globulin Ratio 1.0 02/13/20 09:49: Troponin I 1.15H, Urine Color ROSELINE, Urine Appearance CLOUDYH, Urine pH 6.0, U rine Specific [place] 1.023, Urine Protein 2+H, Urine Glucose (UA) 1+H, Urine Ketones NEGATIVE, Urine Blood 3+H, Urine Nitrite NEGATIVE, Urine Bilirubin NEGATIVE, Urine Urobilinogen 0.2, Urine Leukocyte Esterase 2+H, Urine WBC (Auto) 127H, Urine RBC (Auto) TNTCH, Urine Hyaline Casts (Auto) 14, Urine Bacteria (Auto) 1+H, Urine Squamous Epithelial Cells 0, Urine Mucus (Auto) SMALL, Urine Sperm (Auto) 02/13/20 12:26: Bedside Glucose (Misc Panel) 143H 02/13/20 16:55: Bedside Glucose (Misc Panel) 159H 02/13/20 19:39: Bedside Glucose (Misc Panel) 200H CBC/BMP Laboratory Tests 02/13/20 04:50 Microbiology Microbiology 02/13/20 Urine Culture, Received Pending 02/11/20 Blood Culture - Preliminary, Resulted No growth after 24 hours . All specim... 02/11/20 Blood Culture - Preliminary, Resulted No growth after 24 hours . All specim... MIHAELA TRACEY MD Feb 13, 2020 22:15
[2020-02-13] MEDS: CIPROFLOXACIN 400 MG in IV 1 EA IV SCH (23:25)
[2020-02-14] VITALS (15 sets, daily range): BP systolic 118–162; BP diastolic 71–98; O2SAT 90–94
[2020-02-14 04:05] LABS: HEMOGLOBIN 13.4 g/dl (13.5-17.5); MEAN CORPUSCULAR HGB CONC 29.8 g/dl (32.0-36.5); MEAN CORPUSCULAR VOLUME 94.1 fl (80.0-96.0); PLATELET COUNT, AUTOMATED 275 10^3/uL (150-450); RED BLOOD COUNT 4.78 10^6/uL (4.30-6.10); WHITE BLOOD COUNT 12.6 10^3/uL (4.0-10.0)
[2020-02-14 04:18] LABS: INR 2.58; PROTHROMBIN TIME 28.3 SECONDS (12.5-14.3)
[2020-02-14 04:27] LABS: ALBUMIN 3.2 GM/DL (3.2-5.2); BILIRUBIN,TOTAL 0.5 MG/DL (0.2-1.0); CALCIUM LEVEL 8.8 MG/DL (8.8-10.2); CREATININE FOR GFR 1.47 MG/DL (0.70-1.30); GLOMERULAR FILTRATION RATE 49.7 (>42); MAGNESIUM LEVEL 2.1 MG/DL (1.8-2.4); POTASSIUM SERUM 3.7 MEQ/L (3.5-5.1); TOTAL PROTEIN 6.3 GM/DL (6.4-8.2)
[2020-02-14] MEDS: CARVedilol 6.25 MG TAB PO SCH ×3 (06:26→17:43)
[2020-02-14] MEDS: amLODIPine 5 MG TAB PO SCH ×2 (08:54→21:23)
[2020-02-14] MEDS: HumaLOG INSULIN (NovoLOG) PER UNIT SC SCH ×4 (08:54→21:00)
[2020-02-14] MEDS: ramipriL 5 MG CAP PO SCH (08:54)
[2020-02-14] MEDS: TORSEMIDE 20 MG TAB PO SCH (08:55)
[2020-02-14] MEDS: DOCUSATE SODIUM 100MG CAPSULE PO SCH ×2 (08:55→21:23)
[2020-02-14] MEDS: COLCHICINE 0.6 MG TABLET PO SCH (08:55)
[2020-02-14] MEDS: NYSTATIN 100,000 UNITS/GM TOPICAL PWD 15 GM TOP SCH ×2 (08:56→21:24)
--- NOTE | 2020-02-14 10:43 | IPNPDOC ---
Date Seen The patient was seen on 02/14/20. Progress Note SUBJECTIVE: Patient was seen and examined at bedside this morning. He is comfortable sitting upright in chair. He states he couldn't get comfortable overnight, but overall feels well. He does have some audible wheezes. Expiration. Patient states he doesn't have any fevers, chills, chest pain, s hortness of breath. He was bradycardic to the 30s overnight . Symptomatically. OBJECTIVE PHYSICAL EXAMINATION: VITAL SIGNS: Please see below. GENERAL: comfortable at rest HEENT: R sided facial droop, sequela of prior CVA x 2 CARDIOVASCULAR: irregular, rate 80s. Normal S1, S2, no gallops, rubs RESPIRATORY: lungs CTAB, no wheeze, madina. ABDOMINAL: soft, obese, non tender EXTREMITIES: 2+ edema, chronic venous stasis changes, pulses 1+ NEUROLOGICAL: AAO x 3, moving all 4 extremities PSYCHOLOGICAL: calm cooperative. LABORATORY DATA, IMAGING STUDIES, MICROBIOLOGY: Please see below. DVT prophylaxis ordered?: Y ASSESSMENT AND PLAN: Patient is a 74 y/o male with a PMH of A-fib, Hx of CVAs, and HFpEF who presented to the ED complaining of worsening SOB for the past 2 weeks, admitted for afib w RVR, hypertensive urgency and fluid overload. PROBLEMS: #afib with RVR: rate controlled, s/p cardizem drip, digoxin 0.25 mg in ED. Cardio consult. Coreg 6.25 mg q6h. patient bradycardic overnight, dw Dr. Baeza, will place hold parameters on coreg, to hold HR<90 bpp. Tele. f/u Echo report. C/w warfarin. #Bradycardia: overnight, HR 30s, asymptomatic. Coreg parameters, to hold for HR<90. Likely 2/2 ELAINA. Family asked to bring home CPAP. #Elevated trop: mX 1.28, trending down. No chest pain. No ischemic changes on EKG. Likely demand/leak 2/2 RVR and hypertensive urgency. Dr. Baeza aware, co nsulted. Trend trops, EKGs. #Acute diastolic CHF exacerbation: last echo 2009, repeat ordered. C/w BB, ACEi. Ramipril 10 mg daily. Torsemide 20 mg PO bid. Will decrease to daily dosing as BUN 40. Cr stable at 1.47. #WBC count: denies dysuria. Diabetic. UA+. Ciprofloxacin (anaphylaxis to PCN). F/u urine cultures. #Hypertensive urgency: BP improved, 150s/90. s/p cardizem drip. Dr. Baeza consulted. Amlodipine 5 mg BID. Ramipril 10 mg daily. #Wheeze: duonebs prn. CXR. #DM2: ISS, FSBS AC and HS. Hypoglycemic precautions. Check a1c. #HLD: c/w statin #CVA: resume home meds. on warfarin #Gout: c/w colchicine #CKD3: CR at baseline. #Obesity BMI 57.7, complicating care. #ELAINA: on home CPAP. Family will bring. #GI ppx: protonix DVT ppx: warfarin. DISPOSITION: admission expected to last > 2 midnights. PT cleared patient for DC. VS, [facility]&O, [facility] Vital Signs/I&O Vital Signs Date Time Temp Pulse Resp B/P (MAP) Pulse Ox O2 Delivery O2 Flow Rate FiO2 02/14/20 08:54 68 131/74 02/14/20 08:00 96.1 18 91 Nasal Cannula 2.0 I&O- Last 24 Hours up to 6 AM 02/14/20 06:00 Intake Total 1660 ml Output Total 3400 ml Balance -1740 ml Laboratory Data 24H LABS Laboratory Tests 2 02/13/20 12:26: Bedside Glucose (Misc Panel) 143H 02/13/20 16:55: Bedside Glucose (Misc Panel) 159H 02/13/20 19:39: Bedside Glucose (Misc Panel) 200H 02/14/20 03:47: Nucleated Red Blood Cells % (auto) 0.0, Prothrombin Time 28.3H, Prothromb Time International Ratio 2.58, Anion Gap 4L, Glomerular Filtration Rate 49.7, Calcium Level 8.8, Magnesium Level 2.1, Total Bilirubin 0.5, Aspartate Amino Transf (AST/SGOT) 19, Alanine Aminotransferase (ALT/SGPT) 17, Alkaline Phosphatase 90, Total Protein 6.3L, Albumin 3.2, Albumin/Globulin Ratio 1.0 CBC/BMP Laboratory Tests 02/14/20 03:47 Microbiology Microbiology 02/13/20 Urine Culture, Received Pending 02/11/20 Blood Culture - Preliminary, Resulted No Growth after 48 hours. All Specime... 02/11/20 Blood Culture - Preliminary, Resulted No Growth after 48 hours. All Specime... MIHAELA TRACEY MD Feb 14, 2020 10:43
[2020-02-14] MEDS: THERAPEUTIC BATH LOTION 240 ML BTL TOP SCH ×3 (11:39→21:23)
[2020-02-14] MEDS: CIPROFLOXACIN 400 MG in IV 1 EA IV SCH ×2 (11:47→23:43)
[2020-02-14] MEDS ORDERED: IPRATROPIUM 0.5MG/ALBUTEROL 2.5MG INH SOL UD 3ML (DUONEB) NEB PRN (12:15)
--- NOTE | 2020-02-14 12:45 | REP ---
INDICATION: wheezing COMPARISON: 02/13/2020 TECHNIQUE: Portable AP view of the chest FINDINGS: Cardiomegaly is again suggested. Increased pulmonary vascular markings along with cephalization and increased interstitial markings cannot exclude CHF/interstitial edema as well as possible left lower lobe atelectasis and small effusion. IMPRESSION: Limited examination. Cannot exclude CHF/interstitial edema as well as left lower lobe opacity. <Electronically signed by Syd Hawthorne > 02/14/20 [id number]
[2020-02-14] MEDS: SPIRONOLACTONE 12.5MG PER 1/2 TABLET PO SCH (13:39)
[2020-02-14] MEDS: WARFARIN SOD 2.5MG TAB PO SCH (17:44)
[2020-02-14] MEDS: ATORVASTATIN 20 MG TAB PO SCH (21:22)
[2020-02-15] VITALS: BP 154/86
[2020-02-15 04:00] VITALS: BP 137/91
[2020-02-15 05:48] LABS: HEMATOCRIT 45.2 % (42.0-52.0); HEMOGLOBIN 13.7 g/dl (13.5-17.5); MEAN CORPUSCULAR HEMOGLOBIN 28.3 pg (27.0-33.0); MEAN CORPUSCULAR HGB CONC 30.3 g/dl (32.0-36.5); MEAN CORPUSCULAR VOLUME 93.4 fl (80.0-96.0); PLATELET COUNT, AUTOMATED 264 10^3/uL (150-450); RED BLOOD COUNT 4.84 10^6/uL (4.30-6.10); WHITE BLOOD COUNT 9.7 10^3/uL (4.0-10.0)
[2020-02-15] MEDS: CARVedilol 6.25 MG TAB PO SCH ×4 (06:00→18:00)
[2020-02-15 06:15] LABS: BILIRUBIN,TOTAL 0.6 MG/DL (0.2-1.0); CALCIUM LEVEL 8.6 MG/DL (8.8-10.2); CREATININE FOR GFR 1.38 MG/DL (0.70-1.30); GLOMERULAR FILTRATION RATE 53.5 (>42); MAGNESIUM LEVEL 2.2 MG/DL (1.8-2.4); POTASSIUM SERUM 3.5 MEQ/L (3.5-5.1); TOTAL PROTEIN 6.5 GM/DL (6.4-8.2)
--- NOTE | 2020-02-15 07:07 | ECHO ---
DATE OF PROCEDURE: 02/12/2020 Age: 74 Gender: Male Height: 68 inches Weight: 341 pounds Body surface area: 2.57 m2 PATIENT LOCATION: Inpatient progressive care unit (PCU) Room 3217. REFERRING PHYSICIAN: Dani Jaimes DO. INDICATION: Congestive heart failure (CHF). Atrial fibrillation. MEASUREMENTS: 2D Measurements: RV 4.9 cm LV 5.4 cm Septum 1.4 cm Posterior wall 1.4 cm Aortic Root 3.9 cm LA 5.5 cm LVEF 55-60% Doppler Measurements: AV 1.56 m/s LVOT 0.8 m/s LVOT diameter 2.0 cm MV-E 80 Early mitral deceleration time 161 msec PV 0.8 m/s Pulmonary artery acceleration time 90 msec IVC 3.2 cm COMMENTS: Underlying atrial fibrillation with controlled ventricular response. Technically difficult study in light of the patients body habitus, but some diagnostically useful information was still obtained. M-mode and two-dimensional echocardiography was performed with pulse, continuous wave, and color flow. Tissue Doppler could not be performed. Moderate left ventricular hypertrophy that appears eccentric. Difficult to assess all left ventricular wall segments, but global left ventricular systolic function appears to be normal. Severely dilated left atrium. Could not assess mean left atrial pressure at this time because of his body habitus and technical difficulties with imaging. At least [id number] dilated right ventricle. We had difficulty visualizing right ventricular free wall motion, but this appeared to be reduced and likely has severe pulmonary hypertension. Severely dilated right atrium and IVC with virtually absent respiratory collapse in keeping with an elevated central venous pressure. Aortic root diameter upper limits of normal. Slight aortic valvular sclerosis, but no functional abnormality. The mitral valvular apparatus appeared to be fairly normal with normal leaflet excursion and no posterior systolic buckling. Could not visualize any mitral insufficiency. Could not visualize intercuspid valve very well or assess for tricuspid insufficiency. No pericardial effusion. Could not visualize any obvious intracardiac mass. [facility]
--- NOTE | 2020-02-15 07:12 | ECGEPIP ---
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
--- NOTE | 2020-02-15 07:19 | ECGEPIP ---
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
[2020-02-15 08:00] VITALS: BP 142/90
--- NOTE | 2020-02-15 08:44 | ECGEPIP ---
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
[2020-02-15] MEDS: guaiFENesin ER 600 MG TAB PO SCH ×2 (09:00→20:50)
[2020-02-15] MEDS: COLCHICINE 0.6 MG TABLET PO SCH (09:09)
[2020-02-15] MEDS: HumaLOG INSULIN (NovoLOG) PER UNIT SC SCH ×4 (09:10→20:51)
[2020-02-15] MEDS: DOCUSATE SODIUM 100MG CAPSULE PO SCH ×2 (09:11→20:50)
[2020-02-15] MEDS: SPIRONOLACTONE 12.5MG PER 1/2 TABLET PO SCH (09:12)
[2020-02-15] MEDS: ramipriL 5 MG CAP PO SCH (09:12)
[2020-02-15] MEDS: THERAPEUTIC BATH LOTION 240 ML BTL TOP SCH ×5 (09:13→21:27)
[2020-02-15] MEDS: amLODIPine 5 MG TAB PO SCH ×2 (09:13→20:48)
[2020-02-15] MEDS: NYSTATIN 100,000 UNITS/GM TOPICAL PWD 15 GM TOP SCH ×2 (09:14→20:52)
[2020-02-15] MEDS: CIPROFLOXACIN 400 MG in IV 1 EA IV SCH (11:12)
[2020-02-15 12:00] VITALS: BP 140/80
[2020-02-15 12:59] LABS: TROPONIN I 0.36 NG/ML (< 0.10)
--- NOTE | 2020-02-15 13:59 | IPNPDOC ---
Date Seen The patient was seen on 02/15/20. Progress Note SUBJECTIVE: patient seen and examined at bedside. He is comfortable in bed. Clearing his throat, complaining of a productive cough. He is afebrile overnight, and does not have a white count. He denies fevers, chills. HR in the 50s overnight. Family brought his CPAP machine, he states he slept better. OBJECTIVE PHYSICAL EXAMINATION: VITAL SIGNS: Please see below. GENERAL: comfortable at rest HEENT: R sided facial droop, sequela of prior CVA x 2 CARDIOVASCULAR: irregular, rate 80s. Normal S1, S2, no gallops, rubs RESPIRATORY: possible rhocnhi in the LLL. Upper respiratory breath sounds. ABDOMINAL: soft, obese, non tender EXTREMITIES: 2+ edema, chronic venous stasis changes, pulses 1+ NEUROLOGICAL: AAO x 3, moving all 4 extremities PSYCHOLOGICAL: calm cooperative. LABORATORY DATA, IMAGING STUDIES, MICROBIOLOGY: Please see below. DVT prophylaxis ordered?: Y ASSESSMENT AND PLAN: Patient is a 74 y/o male with a PMH of A-fib, Hx of CVAs, and HFpEF who presented to the ED complaining of worsening SOB for the past 2 weeks, admitted for afib w RVR, hypertensive urgency and fluid overload. PROBLEMS: #afib with RVR: rate controlled, s/p cardizem drip, digoxin 0.25 mg in ED. Cardio consult. Coreg 6.25 mg q6h. patient bradycardic overnight, dw Dr. Baeza, will place hold parameters on coreg, to hold HR<90 bpp. Tele. f/u Echo report. C/w warfarin. #Bradycardia: overnight, HR 50s, asymptomatic. Coreg parameters, to hold for HR<90. Likely 2/2 ELAINA. On home CPAP machine overnight. #Elevated trop: mX 1.28, trending down. No chest pain. No ischemic changes on EKG. Likely demand/leak 2/2 RVR and hypertensive urgency. Dr. Baeza aware, consulted. Trend trops, EKGs. #Acute diastolic CHF exacerbation: last echo 2009, repeat ordered. C/w BB, ACEi. Ramipril 10 mg daily. Torsemide 20 mg PO bid. Will decrease to daily dosing as BUN 40. Cr stable at 1.47. #WBC count: denies dysuria. Diabetic. UA+. Ucx positive for staph epidermidis. completed 2 days of cipro, however was asymptomatic. Baltazar stop abx for UTI. Mucinex. #possible PNA: considering his WBC elevation, productive cough without fever, will treat for suspicous CAP. Start doxycycline 100 mg IV q12h, can transition to PO on dc. 93% on RA. #Hypertensive urgency: BP improved, 150s/90. s/p cardizem drip. Dr. Baeza consulted. Amlodipine 5 mg BID. Ramipril 10 mg daily. Spironolactone 12.[address] Baeza. #Wheeze: duonebs prn. CXR. #DM2: ISS, FSBS AC and HS. Hypoglycemic precautions. A1c 6.9. #HLD: c/w statin #CVA: resume home meds. on warfarin #Gout: c/w colchicine #CKD3: CR at baseline. #Obesity BMI 57.7, complicating care. #ELAINA: family brought his home CPAP machine. #GI ppx: protonix DVT ppx: warfarin. DISPOSITION: admission expected to last > 2 midnights. PT cleared patient for DC, will require home services PT. VS, I&O, [facility] Vital Signs/I&O Vital Signs Date Time Temp Pulse Resp B/P (MAP) Pulse Ox O2 Delivery O2 Flow Rate FiO2 02/15/20 12:00 97.6 64 20 140/80 (100) 93 Room Air 02/15/20 04:00 3.0 I&O- Last 24 Hours up to 6 AM 02/15/20 06:00 Intake Total 1740 ml Output Total 2875 ml Balance -1135 ml Laboratory Data 24H LABS Laboratory Tests 2 02/14/20 16:44: Bedside Glucose (Misc Panel) 162H 02/14/20 21:21: Bedside Glucose (Misc Panel) 140H 02/15/20 05:26: Nucleated Red Blood Cells % (auto) 0.0, Anion Gap 5L, Glomerular Filtration Rate 53.5, Calcium Level 8.6L, Magnesium Level 2.2, Total Bilirubin 0.6, Aspartate Amino Transf (AST/SGOT) 11, Alanine Aminotransferase (ALT/SGPT) 17, Alkaline Phosphatase 86, Troponin I 0.36#H, Total Protein 6.5, Albumin 3.0L, Albumin/Globulin Ratio 0.9 02/15/20 11:41: Bedside Glucose (Misc Panel) 246H CBC/BMP Laboratory Tests 02/15/20 05:26 Microbiology Microbiology 02/13/20 Urine Culture - Final, Complete Staphylococcus Epidermidis 02/11/20 Blood Culture - Preliminary, Resulted No Growth after 72 hours. All specime... 02/11/20 Blood Culture - Preliminary, Resulted No Growth after 72 hours. All specime... MIHAELA TRACEY MD Feb 15, 2020 13:59
--- NOTE | 2020-02-15 14:39 | REP ---
INDICATION: cough. COMPARISON: Comparison chest x-ray February 14, 2020.. TECHNIQUE: Single-view sitting portable AP radiograph. FINDINGS: Monitoring electrodes are seen. Moderate cardiac enlargement is observed unchanged. Pulmonary vasculature is cephalized. There is minimal linear fibrosis in the left base. No acute infiltrate is appreciated. IMPRESSION: Cardiomegaly. No acute infiltrate seen. Pulmonary vascular congestion. <Electronically signed by Spencer Bernal > 02/15/20 [id number]
[2020-02-15] MEDS: DOXYCYCLINE HYCLATE 100 MG in D5W MINI-BAG PLUS 100 ML IV SCH (15:52)
[2020-02-15 16:00] VITALS: BP 138/76
[2020-02-15] MEDS: WARFARIN SOD 2.5MG TAB PO SCH (17:37)
[2020-02-15 20:00] VITALS: BP 132/78
[2020-02-15] MEDS: ATORVASTATIN 20 MG TAB PO SCH (20:50)
--- NOTE | 2020-02-15 21:43 | IPN ---
PROGRESS NOTE DATE: 02/15/2020 CARDIOLOGY PROGRESS NOTE I have been monitoring him from [facility] and unfortunately we have been observing markedly slow ventricular responses to his atrial fibrillation with rates documented even during wakeful hours in the 30s and even 28 beats per minute. We also know he can have a rapid ventricular response to his atrial fibrillation as documented at the time of his admission. In light of these findings, we have recommended to the patient and his daughter the implantation of a permanent single chamber ventricular demand pacemaker so that we can safely administer his negative chronotropic therapy. The indication, procedure, and potential risks were discussed with them and they appear to understand and agree. He is currently on warfarin oral anticoagulant therapy with a PT/INR of 28.3/2.58. At this time, we have placed this drug on hold and anticipate by 02/17/2020 that his PT/INR will be low enough for us to safely proceed without excessive incisional bleeding. We will continue to monitor him closely with you.
[2020-02-16] VITALS: BP 118/56
[2020-02-16] MEDS: DOXYCYCLINE HYCLATE 100 MG in D5W MINI-BAG PLUS 100 ML IV SCH ×2 (03:22→15:01)
[2020-02-16 04:00] VITALS: BP 122/80
[2020-02-16] MEDS: CARVedilol 6.25 MG TAB PO SCH ×4 (06:00→18:00)
[2020-02-16 07:15] VITALS: BP 128/72
[2020-02-16] MEDS: COLCHICINE 0.6 MG TABLET PO SCH ×2 (08:06→08:15)
[2020-02-16] MEDS: amLODIPine 5 MG TAB PO SCH ×2 (08:06→21:00)
[2020-02-16] MEDS: DOCUSATE SODIUM 100MG CAPSULE PO SCH ×2 (08:14→21:31)
[2020-02-16] MEDS: HumaLOG INSULIN (NovoLOG) PER UNIT SC SCH ×4 (08:14→21:00)
[2020-02-16] MEDS: guaiFENesin ER 600 MG TAB PO SCH ×2 (08:14→21:31)
[2020-02-16] MEDS: SPIRONOLACTONE 12.5MG PER 1/2 TABLET PO SCH (08:15)
[2020-02-16] MEDS: ramipriL 5 MG CAP PO SCH (08:16)
[2020-02-16 08:19] LABS: HEMATOCRIT 47.7 % (42.0-52.0); HEMOGLOBIN 14.4 g/dl (13.5-17.5); MEAN CORPUSCULAR HEMOGLOBIN 28.3 pg (27.0-33.0); MEAN CORPUSCULAR HGB CONC 30.2 g/dl (32.0-36.5); MEAN CORPUSCULAR VOLUME 93.7 fl (80.0-96.0); PLATELET COUNT, AUTOMATED 282 10^3/uL (150-450); RED BLOOD COUNT 5.09 10^6/uL (4.30-6.10); WHITE BLOOD COUNT 8.9 10^3/uL (4.0-10.0)
[2020-02-16 08:57] LABS: ALBUMIN 3.3 GM/DL (3.2-5.2); BILIRUBIN,TOTAL 0.6 MG/DL (0.2-1.0); CALCIUM LEVEL 8.9 MG/DL (8.8-10.2); CREATININE FOR GFR 1.33 MG/DL (0.70-1.30); GLOMERULAR FILTRATION RATE 55.8 (>42); MAGNESIUM LEVEL 2.3 MG/DL (1.8-2.4); TOTAL PROTEIN 6.3 GM/DL (6.4-8.2)
[2020-02-16 11:56] VITALS: BP 148/78
[2020-02-16] MEDS: NYSTATIN 100,000 UNITS/GM TOPICAL PWD 15 GM TOP SCH ×2 (12:41→21:31)
[2020-02-16] MEDS: THERAPEUTIC BATH LOTION 240 ML BTL TOP SCH ×3 (12:41→21:31)
[2020-02-16 15:40] VITALS: BP 144/87
[2020-02-16 20:00] VITALS: BP 132/78
--- NOTE | 2020-02-16 21:08 | IPNPDOC ---
Text Note Date of Service The patient was seen on 02/16/20. NOTE SUBJECTIVE: patient seen and examined at bedside. Using CPAP machine and feeling well sleeping. Dr Baeza evaluated patient and at times severe bradycardia requiring permanent pacemaker planned for . Patient agrees and understands plan. Nurse reports no overnight events. Patient denies any CP, SOB, palpitations. OBJECTIVE PHYSICAL EXAMINATION: GENERAL: comfortable at rest HEENT: R sided facial droop, sequela of prior CVA x 2 CARDIOVASCULAR: irregular, rate 80s. Normal S1, S2, no gallops, rubs RESPIRATORY: lungs CTA bilaterally, no crackles or wheezing ABDOMINAL: soft, obese, non tender EXTREMITIES: 1-2+ edema, chronic venous stasis changes, pulses 1+ NEUROLOGICAL: AAO x 3, moving all 4 extremities PSYCHOLOGICAL: calm cooperative. ASSESSMENT AND PLAN: Patient is a 74 y/o male with a PMH of A-fib, Hx of CVAs, and HFpEF who presented to the ED complaining of worsening SOB for the past 2 weeks, admitted for afib w RVR, hypertensive urgency and fluid overload. Patient was found to have severe bradycardia requiring permanent pacemaker by cardiology. #Bradycardia: severe at time, asymptomatic. Coreg parameters, to hold for HR<90. Likely 2/2 ELAINA. On home CPAP machine overnight. Per Dr Baeza requires permanent pacemaker planned for . #afib with RVR: rate controlled, s/p cardizem drip, digoxin 0.25 mg in ED. Cardio consult. Coreg 6.25 mg q6h. patient bradycardic overnight, dw Dr. Baeza, will place hold parameters on coreg, to hold HR<90 bpp. Tele. Hold warfarin for pacemaker . INR goal for procedure <2 #Elevated trop: mX 1.28, trending down. No chest pain. No ischemic changes on EKG. Likely demand/leak 2/2 RVR and hypertensive urgency. Dr. Baeza aware, consulted. Trend trops, EKGs. #Acute diastolic CHF exacerbation: Echo 55-60% EF severe pulmonary HTN. C/w BB, ACEi. Ramipril 10 mg daily. Torsemide 20 mg PO bid. Cr stable. #Leukocytosis: Resolved. denies dysuria. Diabetic. UA+. Ucx positive for staph epidermidis. completed 2 days of cipro, however was asymptomatic. Stop abx for UTI. #possible PNA: considering his WBC elevation, productive cough without fever, will treat for suspicous CAP. Start doxycycline 100 mg IV q12h, can transition to PO on dc. 93% on RA. #Hypertensive urgency: BP improved, 150s/90. s/p cardizem drip. Dr. Baeza consulted. Amlodipine 5 mg BID. Ramipril 10 mg daily. Spironolactone 12.[address] Baeza. #DM2: ISS, FSBS AC and HS. Hypoglycemic precautions. A1c 6.9. #HLD: c/w statin #CVA: Statin, ASA after procedure. #Gout: c/w colchicine #CKD3: CR at baseline. #Obesity BMI 57.7, complicating care. #ELAINA: family brought his home CPAP machine. #GI ppx: protonix DVT ppx: SCDs. Warfarin held until after procedure . DISPOSITION: admission expected to last > 2 midnights. PT cleared patient for DC, will require home services PT. VS,Brynn, I+O VS, Brynn, I+O Laboratory Tests 02/16/20 08:04 Vital Signs Date Time Temp Pulse Resp B/P (MAP) Pulse Ox O2 Delivery O2 Flow Rate FiO2 02/16/20 20:00 97.0 65 18 132/78 (96) 94 Room Air 02/16/20 07:15 3.0 I&O- Last 24 Hours up to 6 AM 02/16/20 06:00 Intake Total 1960 ml Output Total 825 ml Balance 1135 ml HERMELINDO MAYNARD MD Feb 16, 2020 21:08
[2020-02-16] MEDS: ATORVASTATIN 20 MG TAB PO SCH (21:31)
[2020-02-17] VITALS (23 sets, daily range): BP systolic 142–164; BP diastolic 64–88; O2SAT 92–95
[2020-02-17] MEDS: DOXYCYCLINE HYCLATE 100 MG in D5W MINI-BAG PLUS 100 ML IV SCH ×2 (03:25→15:02)
[2020-02-17 05:54] LABS: HEMATOCRIT 45.2 % (42.0-52.0); HEMOGLOBIN 13.9 g/dl (13.5-17.5); MEAN CORPUSCULAR HGB CONC 30.8 g/dl (32.0-36.5); MEAN CORPUSCULAR VOLUME 94.2 fl (80.0-96.0); PLATELET COUNT, AUTOMATED 246 10^3/uL (150-450); WHITE BLOOD COUNT 8.9 10^3/uL (4.0-10.0)
[2020-02-17] MEDS: CARVedilol 6.25 MG TAB PO SCH ×5 (06:00→22:24)
[2020-02-17 06:04] LABS: INR 2.64; PROTHROMBIN TIME 28.8 SECONDS (12.5-14.3)
[2020-02-17 06:25] LABS: BLOOD UREA NITROGEN 28 MG/DL (7-18); CALCIUM LEVEL 8.4 MG/DL (8.8-10.2); CARBON DIOXIDE LEVEL 33 MEQ/L (21-32); CHLORIDE LEVEL 107 MEQ/L (98-107); GLOMERULAR FILTRATION RATE > 60.0 (>42); GLUCOSE, FASTING 149 MG/DL (70-100); POTASSIUM SERUM 3.4 MEQ/L (3.5-5.1); SODIUM LEVEL 143 MEQ/L (136-145)
[2020-02-17] MEDS: ramipriL 5 MG CAP PO SCH (08:47)
[2020-02-17] MEDS: COLCHICINE 0.6 MG TABLET PO SCH (08:47)
[2020-02-17] MEDS: SPIRONOLACTONE 12.5MG PER 1/2 TABLET PO SCH (08:47)
[2020-02-17] MEDS: HumaLOG INSULIN (NovoLOG) PER UNIT SC SCH ×4 (08:47→20:17)
[2020-02-17] MEDS: DOCUSATE SODIUM 100MG CAPSULE PO SCH ×2 (08:48→20:27)
[2020-02-17] MEDS: amLODIPine 5 MG TAB PO SCH ×2 (08:48→20:29)
[2020-02-17] MEDS: guaiFENesin ER 600 MG TAB PO SCH ×2 (08:48→20:27)
[2020-02-17] MEDS: THERAPEUTIC BATH LOTION 240 ML BTL TOP SCH ×3 (08:48→20:17)
[2020-02-17] MEDS: NYSTATIN 100,000 UNITS/GM TOPICAL PWD 15 GM TOP SCH ×2 (08:49→20:17)
[2020-02-17] MEDS ORDERED: POTASSIUM CHLORIDE 10 MEQ SR TABLET PO ONE (09:00)
[2020-02-17] MEDS: KCL 10MEQ/100ML SWI (KRUN) 10 MEQ in IV 1 EA IV SCH ×4 (09:46→13:13)
[2020-02-17] MEDS ORDERED: SLF 3 ML SYR IV PRN (12:00)
--- NOTE | 2020-02-17 12:38 | IPNPDOC ---
Text Note Date of Service The patient was seen on 02/17/20. NOTE Subjective: patient seen and examined at bedside. Nurse reports no overnight events. Patient denies any CP, SOB, palpitations. Patient awaiting permanent pacemaker placement tomorrow. Objective: GENERAL: comfortable at rest HEENT: R sided facial droop, sequela of prior CVA x 2 CARDIOVASCULAR: irregular, rate 80s. Normal S1, S2 RESPIRATORY: lungs CTA bilaterally, no crackles or wheezing ABDOMINAL: soft, obese, non tender EXTREMITIES: 1+ edema, chronic venous stasis changes, pulses 1+ NEUROLOGICAL: AAO x 3, moving all 4 extremities PSYCHOLOGICAL: calm cooperative. Assessment/plan: Patient is a 74 y/o male with a PMH of A-fib, Hx of CVAs, and HFpEF who presented to the ED complaining of worsening SOB for the past 2 weeks, admitted for afib w RVR, hypertensive urgency and fluid overload. Patient was found to have severe bradycardia requiring permanent pacemaker by cardiology. #Bradycardia: severe at time, asymptomatic. Coreg parameters, to hold for HR<90. Likely 2/2 ELAINA. On home CPAP machine overnight. Per Dr Baeza requires permanent pacemaker 02/18/2020 #afib with RVR: rate controlled, s/p cardizem drip, digoxin 0.25 mg in ED. Cardio consult. Coreg 6.25 mg q6h. patient bradycardic overnight, dw Dr. Baeza, will place hold parameters on coreg, to hold HR<90 bpp. Tele. Hold warfarin for pacemaker . INR goal for procedure <2 #Elevated trop: mX 1.28, trended down. No chest pain. No ischemic changes on EKG. Likely demand/leak 2/2 RVR and hypertensive urgency. Dr. Baeza aware, consulted. #Acute diastolic CHF exacerbation: Echo 55-60% EF severe pulmonary HTN. C/w BB, ACEi. Ramipril 10 mg daily. Torsemide PO bid. Cr stable. #Leukocytosis: Resolved. denies dysuria. Diabetic. UA+. Ucx positive for staph epidermidis. completed 2 days of cipro, however was asymptomatic. Stop abx for UTI. #possible PNA: considering his initial WBC elevation, productive cough without fever, will treat for suspicious CAP. Start doxycycline 100 mg IV q12h, can tr ansition to PO on dc. 93% on RA. #Hypertensive urgency: BP improved, 150s/90. s/p cardigabriella drip. Dr. Baeza consulted. Amlodipine 5 mg BID. Ramipril 10 mg daily. Spironolactone 12.[address] Baeza. #DM2: ISS, FSBS AC and HS. Hypoglycemic precautions. A1c 6.9. #HLD: c/w statin #CVA: Statin, ASA after procedure. #Gout: c/w colchicine #CKD3: CR at baseline. #Obesity BMI 57.7, complicating care. #ELAINA: family brought his home CPAP machine. #GI ppx: protonix # DVT ppx: SCDs. Warfarin held until after procedure . DISPOSITION: PT cleared patient for DC, will require home services PT. Home after pacemaker placement. A [facility] Hospitalist Brynn ESPINOSA, I+O VSBrynn I+O Laboratory Tests 02/17/20 05:03 Vital Signs Date Time Temp Pulse Resp B/P (MAP) Pulse Ox O2 Delivery O2 Flow Rate FiO2 02/17/20 12:23 97.3 66 18 152/73 (99) 94 Room Air 02/17/20 07:15 3.0 I&O- Last 24 Hours up to 6 AM 02/17/20 06:00 Intake Total 100 ml Output Total 525 ml Balance -425 ml HERMELINDO MAYNARD MD Feb 17, 2020 12:38
[2020-02-17] MEDS: SLF 3 ML SYR IV SCH ×2 (13:04→22:11)
[2020-02-17] MEDS: ATORVASTATIN 20 MG TAB PO SCH (20:28)
[2020-02-18] VITALS (14 sets, daily range): BP systolic 135–173; BP diastolic 19–90; O2SAT 90–94
[2020-02-18] MEDS: DOXYCYCLINE HYCLATE 100 MG in D5W MINI-BAG PLUS 100 ML IV SCH ×2 (02:02→17:26)
[2020-02-18 05:11] LABS: HEMATOCRIT 45.3 % (42.0-52.0); HEMOGLOBIN 13.7 g/dl (13.5-17.5); MEAN CORPUSCULAR HEMOGLOBIN 28.2 pg (27.0-33.0); MEAN CORPUSCULAR HGB CONC 30.2 g/dl (32.0-36.5); MEAN CORPUSCULAR VOLUME 93.4 fl (80.0-96.0); PLATELET COUNT, AUTOMATED 231 10^3/uL (150-450); RED BLOOD COUNT 4.85 10^6/uL (4.30-6.10); WHITE BLOOD COUNT 9.4 10^3/uL (4.0-10.0)
[2020-02-18] MEDS: CARVedilol 6.25 MG TAB PO SCH ×2 (05:19→12:00)
[2020-02-18] MEDS: SLF 3 ML SYR IV SCH ×3 (05:19→22:13)
[2020-02-18 05:22] LABS: INR 2.24; PROTHROMBIN TIME 25.3 SECONDS (12.5-14.3)
[2020-02-18 05:38] LABS: BLOOD UREA NITROGEN 22 MG/DL (7-18); CHLORIDE LEVEL 109 MEQ/L (98-107); CREATININE FOR GFR 1.07 MG/DL (0.70-1.30); GLOMERULAR FILTRATION RATE > 60.0 (>42); GLUCOSE, FASTING 130 MG/DL (70-100); SODIUM LEVEL 143 MEQ/L (136-145)
[2020-02-18 05:39] LABS: CALCIUM LEVEL 8.7 MG/DL (8.8-10.2); CARBON DIOXIDE LEVEL 31 MEQ/L (21-32)
[2020-02-18] MEDS ORDERED: ceFAZolin SOD 2 GM in IV 1 EA IV ONE ×4 (06:00)
[2020-02-18] MEDS ORDERED: LR 1,000 ML IV SCH ×2 (06:00→16:30)
[2020-02-18] MEDS: HumaLOG INSULIN (NovoLOG) PER UNIT SC SCH ×4 (07:30→21:00)
[2020-02-18] MEDS: DOCUSATE SODIUM 100MG CAPSULE PO SCH ×2 (08:54→22:10)
[2020-02-18] MEDS: ramipriL 5 MG CAP PO SCH (08:55)
[2020-02-18] MEDS: COLCHICINE 0.6 MG TABLET PO SCH (08:55)
[2020-02-18] MEDS: guaiFENesin ER 600 MG TAB PO SCH ×2 (08:55→22:10)
[2020-02-18] MEDS: amLODIPine 5 MG TAB PO SCH ×2 (08:55→22:11)
[2020-02-18] MEDS: SPIRONOLACTONE 12.5MG PER 1/2 TABLET PO SCH (08:55)
[2020-02-18] MEDS: NYSTATIN 100,000 UNITS/GM TOPICAL PWD 15 GM TOP SCH ×2 (08:58→22:13)
[2020-02-18] MEDS: THERAPEUTIC BATH LOTION 240 ML BTL TOP SCH ×3 (08:58→22:13)
[2020-02-18] MEDS ORDERED: ONDANSETRON 4MG/2ML VIAL As Ordered ONE (12:14)
[2020-02-18] MEDS ORDERED: dexameTHASONE 4 MG/ML 1ML VIAL (J1100 PER 1MG) As Ordered ONE (12:14)
[2020-02-18] MEDS ORDERED: propofoL 200 MG/20 ML VIAL As Ordered ONE ×3 (12:14→15:15)
[2020-02-18] MEDS ORDERED: LIDOCAINE 2% 100MG/5ML SDV (FOR ANES.) As Ordered ONE (12:14)
[2020-02-18] MEDS ORDERED: METOCLOPRAMIDE INJ 10MG/2ML VIAL (J2765 PER 1) As Ordered ONE (12:14)
[2020-02-18] MEDS ORDERED: fentaNYL 100 MCG/2 ML INJECTION (J3010) As Ordered ONE (12:16)
--- NOTE | 2020-02-18 12:23 | CR ---
CARDIOLOGY CONSULTATION INDICATION: Elevated troponin I. Atrial fibrillation with rapid ventricular response. Congestive heart failure. HISTORY: This 74-year-old father of four grown children, retired resident of [place], currently lives in [address]. He has a complicated medical history. Currently able to walk short distances using a cane but his stopping and apartment cleaning is primarily performed by his daughters. Chief limitations: Shortness of breath, fatigue and some unsteadiness. He presented to the emergency room yesterday by ambulance. He apparently had been at his daughter's house for Thanksgiving dinner and had suddenly worsening effort dyspnea though he claims this has been present for the past several weeks. Upon his presentation in the emergency room, his pulse was 122 beats per minute, blood pressure 205/120, respiratory rate 24 with O2 saturation 82% on supplemental oxygen. Chest x-ray was reported as showing obvious cardiomegaly and pulmonary edema, on EKG atrial fibrillation with rapid ventricular response, possible prior anterior/inferior infarctions and nonspecific ST/T wave abnormalities but there was no EKG available for comparison. The patient was admitted to the intensive care unit after failing to respond to Digoxin to control his rate. He was placed on a diltiazem IV infusion (despite his heart failure). He was given controlled supplemental oxygen and IV Lasix. His was controlled and with IV Lasix every four hours, he was able to generate a negative fluid balance of some 1200 cc earlier today. In slight of persistent hypertension and serial troponin I levels that were trending upward, a cardiology consultation was placed. The patient denies having had any chest pain. KNOWN PAST CARDIAC DISEASE/EVENTS/TESTS: As far back as 2000, he has been known to have hypertension, hypertensive heart disease complicated by atrial fibrillation, abnormal EKG and heart failure. History of cerebrovascular accident in the past affecting his speech and right arm but as mentioned, has been able to ambulate using a cane. August,, an echocardiogram was attempted but was technically difficult in light of his morbid obesity. It was believed to show mild left ventricular hypertrophy yet preserved wall motion. Right ventricle was not visualized. Both left and right atria were severely dilated. His inferior vena cava was also dilated. Aortic dimensions were reportedly normal. Lobular structures were not well visualized but Doppler interrogation failed to demonstrate any hemodynamically significant abnormality. CORONARY RISK FACTORS: Advanced age. Male gender. Longstanding morbid obesity. Lipid disorder and glucose intolerance. Lifelong nonsmoker. No family history of premature coronary artery disease. OTHER PAST MEDICAL/SURGICAL HISTORY: Remote appendectomy, prior right ankle and elbow surgery related to falls and fractures. Remote Hubbard's palsy. Longstanding obstructive sleep apnea. He had a CPAP ? compliance. Chronic renal insufficiency. Chronic lower leg swelling and previous venous ulceration. Prior deep venous thrombosis ? Degenerative joint disease and gouty arthritis. REVIEW OF SYSTEMS: Unfortunately history from the patient was believed to be somewhat unreliable. He does admit to having had a problem remembering his medications likely precipitating his current admission and decompensation. Denies any fever, chills or night sweats. He has not had a productive cough. MEDICATIONS: According to [facility] (followed by Carrol Tejada, nurse practitioner) as of February 02, 2020, his mediations included metoprolol succinate 50 mg daily, ramipril 10 mg p.o. daily, torsemide 10 mg daily, warfarin sodium 2.5 mg daily, Lasix 80 mg daily ??, atorvastatin 40 mg q.h.s., colchicine 0.6 mg daily, Flonase inhaler one inhalation, each nostril daily p.r.n., loratadine 10 mg p.o. daily, metformin ER 500 mg tablets, one tablet q.h.s. ALLERGIES: Penicillins and spironolactone reactions? PHYSICAL EXAMINATION: CONSTITUTIONAL: Morbidly obese, elderly male, laid comfortably with the head of bed elevated 30 degrees. VITAL SIGNS: Heart rate 84 beats per minute and irregular, blood pressure 148/88 supine, respiratory rate 18 per minute, 02 saturation 97% on supplemental oxygen by nasal prongs, two liters. I&O balance for the past 24 hours was negative two liters and 380 cc. Weight 379 lb, height 68 inches, BMI 57.7. EYES: Normal conjunctiva and lids. No xanthelasma, petechiae, pallor or icterus. ENT/MOUTH: He has his own teeth. Normal oral moisture with no central cyanosis. NECK: Trachea midline. Thyroid did appear to be enlarged. Neck veins were elevated approximately 8 cm above the sternal angle. RESPIRATORY: Barrel-chested with reduced chest expansion and excursion. A few bibasilar inspiratory rales but no dullness, no prolongation of expiration or audible wheeze. CARDIOVASCULAR: Apical impulse no palpable. Heart sounds somewhat distant and variable, unable to detect S2 splitting or heart any gallops rhythm or murmur. Normal carotid upstrokes with slightly variable volume related to his arrhythmia. No audible bruits. Upper extremity pulses were symmetrical and normal. Abdominal aorta was not palpable, neither were his femoral arteries because of his obvious obesity. Pedal pulses were difficult to palpate because of lower leg swelling. He has a pitting edema extending his whole leg up to his sacrum. GI: Obese, nontender with normal bowel sounds. Unable to detect hepatosplenomegaly with his morbid obesity. Rectal examination not indicated. MUSCULOSKELETAL: No obvious joint deformities. Proximal muscle weakness with reduced movement and increased tone of his right upper arm. Gait of course was not assessed. Normal appearing spine curvature. NEURO/PSYCH: Bright and alert but had obvious dysarthria attributed to his prior cerebrovascular accident. Reduced right arm movements but other extremities appeared to move fairly normally. No involuntary movements. SKIN: Atrophic changes with stasis dermatitis on both lower extremities. No other rashes beyond intertrigo bilaterally inframammary. INVESTIGATIONS: Portable upright chest x-ray taken yesterday evening was reviewed independently and showed obvious cardiomegaly even allowing for this technique. Unfolded thoracic aorta. Obvious pulmonary venous congestion and increased interstitial markings but no obvious pleural effusion or lateralizing infiltrate. EKG: Study performed yesterday in the emergency room appeared to show underlying atrial fibrillation with somewhat rapid ventricular response averaging 125 BPM. 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 Low voltages with QS pattern from V1 through to V4 and persistent S-waves, V5 and V6 along with obvious inferior Q-waves; believed to be related to his body habitus but could not rule out prior infarctions though this appearance does not sound changed from that described in 2001 and his echocardiogram in 2010 showed left ventricular hypertrophy with normal appearing wall motion. His conduction disturbance may well be contributing to this appearance. Subtle inferoapical ST/T-wave abnormalities. BLOOD WORK: Normal hemoglobin of 14.8, slightly elevated white blood cell count of 11.8 thousand, normal platelet count. His admission PT/INR was 26.8/2.4. Electrolytes were in balance with potassium of 3.5, normal bicarb, BUN 17, creatinine 1.58, random glucose 245 with glycosylated hemoglobin of 6.9. Ultrasensitive TSH was normal at 1.93. Albumin was 3.6 with slightly elevated alkaline phosphatase but normal transaminases and total bilirubin. ProBNP level was elevated at 2488. Serial troponin I levels showed initial value on presentation 0.15, reaching a peak this morning of 1.19. IMPRESSION/PLAN: 1. Indeterminate troponin I level: Despite his multiple coronary risk factors and EKG appearance, there is no documented history of angina or actual infarction. His EKG appearance is actually not changed from that described in 2001. Troponin I levels have not reached a level of actual infarction. These indeterminate values have shown an upward trend suspected to be related to his atrial fibrillation with rapid ventricular response and severe hypertension. In light of his morbid obesity and significant renal insufficiency, he would not be a candidate for invasive intervention even if we were dealing with an acute coronary syndrome. Sheehan management would be optimal heart rate and blood pressure control. Currently remains on protectives of beta mackenzie, VIOLA inhibitor, warfarin and atorvastatin. 2. Heart failure (diastolic dysfunction?/[id number]): Patient admits to being noncompliant with his antihypertensive and negative chronotropic therapies which is believed to have been responsible for his decompensation. Underlying left ventricular hypertrophy and diastolic dysfunction is chronic and due to his morbid obesity and hypertension. With his current IV Lasix therapy, has generated a significant negative fluid balance with significant subjective improvement. At this point, he should remain on a modest salt and caloric restriction. His IV Lasix has been replaced by torsemide 20 mg p.o. b.i.d. We will continue to monitor his fluid status and chemistry closely with you. In future, he will require his family to organize his medications and confirm medication compliance to prevent recurrent decompensation. 3. Atrial fibrillation (permanent): Dating back to 2000. Suboptimal ventricular response due to medication noncompliance. In light of his diabetes and blood pressure, I have replaced his metoprolol succinate with carvedilol. We are currently dosing this q.6h. in order to determine the dosage he tolerates and is effective in controlling his rate. In light of his renal insufficiency, I would not continue digoxin therapy. Remains on warfarin oral anticoagulation. Fortunately he has been free of any recent symptomatic thromboembolic event or hemorrhagic complication. 4. Abnormal EKG: Believed to be a reflection of his morbid obesity and his left anterior hemiblock. A follow-up EKG will be obtained in the morning. A follow-up echocardiogram had been ordered and according to the hand paster, it proved to be extremely technically difficult, similar to that observed ten years ago because of his morbid obesity. 5. Hypertensive heart disease (benign with heart failure): Accelerated hypertension provoked by patient's noncompliance with his medical therapy. Current blood pressure has responded to combination carvedilol, ramipril and IV Lasix therapy. Medication adjustments will be made aiming for a blood pressure in the range of 135/80 as long as his renal function remains stable. 6. Morbid obesity (BMI 57.7)/obstructive sleep apnea: Longstanding problem. He had CPAP therapy followed by pulmonary medicine. He claims to have been using this to the present. However, I believe his history not to be terribly reliable. We will check with his family and try to arrange to have his CPAP brought to the hospital. I plan to temporarily follow him with you while he is an inpatient ad appreciate the opportunity to participate in his care. Thank you, Oren Espino MD, FACC
[2020-02-18] MEDS ORDERED: BACITRACIN PWD 50,000 UNITS VIAL As Ordered ONE (13:19)
[2020-02-18] MEDS ORDERED: LIDOCAINE 1% SDV 30ML VIAL As Ordered ONE (13:19)
[2020-02-18] MEDS ORDERED: DOXYCYCLINE HYCLATE 100MG/10ML VIAL As Ordered ONE (13:39)
[2020-02-18] MEDS ORDERED: ONDANSETRON 4MG/2ML VIAL IV PRN (16:30)
[2020-02-18] MEDS ORDERED: PERCOCET 5MG/325MG TAB PO PRN (16:30)
[2020-02-18] MEDS ORDERED: METOCLOPRAMIDE INJ 10MG/2ML VIAL (J2765 PER 1) IV PRN (16:30)
--- NOTE | 2020-02-18 16:49 | REP ---
INDICATION: POST OP IN PACU. COMPARISON: February 15, 2020.. TECHNIQUE: Sitting AP portable radiograph. FINDINGS: Monitoring electrodes are seen. A unipolar pacemaker is been installed view of the left side with intact right heart lead. There is moderate to marked cardiomegaly. Pulmonary vasculature is cephalized and congested. Vascular congestion and perihilar fullness appear more prominent on the left than the right. There is no evidence of pneumothorax or hydrothorax. No focal infiltrate is appreciated. IMPRESSION: Pacemaker inserted. Pulmonary vascular congestion and moderate cardiomegaly. No evidence of pneumothorax or hydrothorax. <Electronically signed by Spencer Bernal > 02/18/20 [id number]
--- NOTE | 2020-02-18 18:53 | ECGEPIP ---
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 : 1945 Requested By: Oren Baeza Order Number: [id number] Reading MD: Gertrude Aguero Measurements Intervals Cooks Rate: 70 P: CO: 0 QRS: -75 QRSD: 99 T: 92 QT: 398 QTc: 432 Interpretive Statements ATRIAL FIB ELECTRONIC VENTRICULAR PACEMAKER -- CONTOUR ANALYSIS BASED ON INTRINSIC RHYTHM LEFT ANTERIOR FASCICULAR BLOCK POSSIBLE OLD IWMI ANTERIOR MYOCARDIAL INFARCTION, OF INDETERMINATE AGE PRWP LATERALLY AND QS SEEN I IN SEPTAL LEADS ON PRIOR WITH INTRINSIC BEATS LOW VOLTAGE-GENERALIZED ON INTRINSIC BEATS (NEW IN PRECORDIAL LEADS) IMPROVED DIFFUSE T WAVE ABN AND PROLONGED QTC SEEN ON PRIOR 02/15/20 PACEMAKER N NOT SEEN ON PRIOR Electronically Signed on 02-18-2020 18:53:00 EST by Gertrude Aguero
--- NOTE | 2020-02-18 19:20 | IPNPDOC ---
Text Note Date of Service The patient was seen on 02/18/20. NOTE Subjective: patient seen and examined at bedside. Nurse reports no overnight events. Patient denies any CP, SOB, palpitations. Patient awaiting permanent pacemaker placement today Objective: GENERAL: comfortable at rest HEENT: R sided facial droop, sequela of prior CVA x 2 CARDIOVASCULAR: irregular, rate 80s. Normal S1, S2 RESPIRATORY: lungs CTA bilaterally, no crackles or wheezing ABDOMINAL: soft, obese, non tender EXTREMITIES: 1+ edema, chronic venous stasis changes, pulses 1+ NEUROLOGICAL: AAO x 3, moving all 4 extremities PSYCHOLOGICAL: calm cooperative. Assessment/plan: Patient is a 74 y/o male with a PMH of A-fib, Hx of CVAs, and HFpEF who presented to the ED complaining of worsening SOB for the past 2 weeks, admitted for afib w RVR, hypertensive urgency and fluid overload. Patient was found to have severe bradycardia requiring permanent pacemaker by cardiology. #Bradycardia: severe at time, asymptomatic. Coreg parameters, to hold for HR<90. Likely 2/2 ELAINA. On home CPAP machine overnight. Per Dr Baeza requires permanent pacemaker 02/18/2020 #afib with RVR: rate controlled, s/p cardizem drip, digoxin 0.25 mg in ED. Cardio consult. Coreg 6.25 mg q6h. patient bradycardic overnight, dw Dr. Baeza, will place hold parameters on coreg, to hold HR<90 bpp. Tele. Hold warfarin for pacemaker . INR goal for procedure <2 #Elevated trop: mX 1.28, trended down. No chest pain. No ischemic changes on EKG. Likely demand/leak 2/2 RVR and hypertensive urgency. Dr. Baeza aware, consulted. #Acute diastolic CHF exacerbation: Echo 55-60% EF severe pulmonary HTN. C/w BB, ACEi. Ramipril 10 mg daily. Torsemide PO bid. Cr stable. #Leukocytosis: Resolved. denies dysuria. Diabetic. UA+. Ucx positive for staph epidermidis. completed 2 days of cipro, however was asymptomatic. Stop abx for UTI. #possible PNA: considering his initial WBC elevation, productive cough without fever, will treat for suspicious CAP. Start doxycycline 100 mg IV q12h, can transition to PO on dc. 93% on RA. #Hypertensive urgency: BP improved, 150s/90. s/p cardizem drip. Dr. Baeza consulted. Amlodipine 5 mg BID. Ramipril 10 mg daily. Spironolactone 12.[address] Baeza. #DM2: ISS, FSBS AC and HS. Hypoglycemic precautions. A1c 6.9. #HLD: c/w statin #CVA: Statin, ASA after procedure. #Gout: c/w colchicine #CKD3: CR at baseline. #Obesity BMI 57.7, complicating care. #ELAINA: family brought his home CPAP machine. #GI ppx: protonix # DVT ppx: SCDs. Warfarin held until after procedure . DISPOSITION: PT cleared patient for DC, will require home services PT. Home after pacemaker placement. A [facility] Hospitalist Brynn ESPINOSA, I+O VSBrynn, I+O Laboratory Tests 02/18/20 04:46 Vital Signs Date Time Temp Pulse Resp B/P (MAP) Pulse Ox O2 Delivery O2 Flow Rate FiO2 02/18/20 18:30 97.3 69 18 135/77 (96) 95 Nasal Cannula 3.0 I&O- Last 24 Hours up to 6 AM 02/18/20 06:00 Intake Total 2200 ml Output Total 375 ml Balance 1825 ml HERMELINDO MAYNARD MD Feb 18, 2020 19:20
[2020-02-18] MEDS: ATORVASTATIN 20 MG TAB PO SCH (22:12)
[2020-02-18] MEDS: CARVedilol 12.5 MG TAB PO SCH (22:12)
[2020-02-19] VITALS (7 sets, daily range): BP systolic 114–141; BP diastolic 53–81; O2SAT 93
[2020-02-19] MEDS: DOXYCYCLINE HYCLATE 100 MG in D5W MINI-BAG PLUS 100 ML IV SCH ×2 (03:56→15:00)
[2020-02-19] MEDS: SLF 3 ML SYR IV SCH ×2 (05:09→13:49)
[2020-02-19 06:32] LABS: HEMATOCRIT 44.8 % (42.0-52.0); HEMOGLOBIN 13.3 g/dl (13.5-17.5); MEAN CORPUSCULAR HEMOGLOBIN 28.7 pg (27.0-33.0); MEAN CORPUSCULAR HGB CONC 29.7 g/dl (32.0-36.5); MEAN CORPUSCULAR VOLUME 96.6 fl (80.0-96.0); PLATELET COUNT, AUTOMATED 212 10^3/uL (150-450); RED BLOOD COUNT 4.64 10^6/uL (4.30-6.10); WHITE BLOOD COUNT 9.4 10^3/uL (4.0-10.0)
[2020-02-19 06:48] LABS: INR 2.21
[2020-02-19 06:54] LABS: BLOOD UREA NITROGEN 23 MG/DL (7-18); CALCIUM LEVEL 8.6 MG/DL (8.8-10.2); CARBON DIOXIDE LEVEL 29 MEQ/L (21-32); CHLORIDE LEVEL 109 MEQ/L (98-107); CREATININE FOR GFR 1.15 MG/DL (0.70-1.30); GLOMERULAR FILTRATION RATE > 60.0 (>42); GLUCOSE, FASTING 134 MG/DL (70-100); POTASSIUM SERUM 4.7 MEQ/L (3.5-5.1); SODIUM LEVEL 143 MEQ/L (136-145)
[2020-02-19] MEDS: ramipriL 5 MG CAP PO SCH (08:34)
[2020-02-19] MEDS: SPIRONOLACTONE 12.5MG PER 1/2 TABLET PO SCH (08:40)
[2020-02-19] MEDS: DOCUSATE SODIUM 100MG CAPSULE PO SCH (08:40)
[2020-02-19] MEDS: guaiFENesin ER 600 MG TAB PO SCH (08:40)
[2020-02-19] MEDS: HumaLOG INSULIN (NovoLOG) PER UNIT SC SCH ×3 (08:40→17:19)
[2020-02-19] MEDS: amLODIPine 5 MG TAB PO SCH (08:41)
[2020-02-19] MEDS: CARVedilol 12.5 MG TAB PO SCH (08:41)
[2020-02-19] MEDS: COLCHICINE 0.6 MG TABLET PO SCH (08:41)
[2020-02-19] MEDS: NYSTATIN 100,000 UNITS/GM TOPICAL PWD 15 GM TOP SCH (08:42)
[2020-02-19] MEDS: THERAPEUTIC BATH LOTION 240 ML BTL TOP SCH ×2 (08:42→16:18)
[2020-02-19] MEDS ORDERED: DIGOXIN 0.25 MG TAB PO SCH (09:00)
--- NOTE | 2020-02-19 09:17 | REP ---
INDICATION: Post pacemaker implant. COMPARISON: Comparison chest x-ray February 18, 2020. TECHNIQUE: Two views.. FINDINGS: Patient is status post pacemaker placement. Moderate cardiomegaly persists. Pulmonary vasculature is congested and interstitial markings are slightly prominent. There is blunting of the right lateral pleural angle. Heart size is unchanged. Minimal platelike atelectasis is present in the left base. There is no evidence of pneumothorax. IMPRESSION: Pacemaker in place. CHF pattern persists with vascular congestion and mildly prominent interstitium. Slight blunting right lateral pleural angle.. <Electronically signed by Spencer Bernal > 02/19/20 0949
--- NOTE | 2020-02-19 09:42 | RO ---
OPERATIVE NOTE DATE OF OPERATION: 02/18/2020 PROCEDURE PERFORMED: Implantation of permanent ventricular demand pacemaker. IMPLAINTING FOREMAN/PROJECT MANAGER: Oren Baeza MD ANESTHESIOLOGIST: Chantal Angel M.D. PREOPERATIVE DIAGNOSES: 1. Intermittent high grade atrioventricular (AV) block. 2. Permanent atrial fibrillation with intermittent rapid ventricular response requiring a negative chronotropic therapy. POSTOPERATIVE DIAGNOSES: 1. Intermittent high grade atrioventricular (AV) block. 2. Permanent atrial fibrillation with intermittent rapid ventricular response requiring a negative chronotropic therapy. ANESTHESIA: Monitored local anesthesia. DESCRIPTION OF PROCEDURE: In the fasting state following informed consent and Ancef 2 grams IV premedication, the patient was taken to the operating theatre. Numerous skin electrodes were applied to facility continuous echocardiographic monitoring. The left subclavian region was prepped and draped in the usual fashion. Considerable difficulty was encountered trying to secure venous access in light of the patient's body habitus (BMI 56). This added at least an hour and a half of extra time. 10 mL of 50% contrast was injected on 2 occasions to verify patency of the left subclavian vein. Chest wall fat measured 4 inches. We were able to finally obtain access using an extended needle and the Seldinger technique. A 5 cm linear incision was then made several cm below and parallel to the left clavicle. Dissection was carried down to the level of the pectoralis fascia and a pocket was fashioned below the level of the incision line. A single bipolar active fixation, steroid eluding pacing lead was then advanced to the distal right ventricular septum under fluoroscopic and echocardiographic control. The ventricular lead ([employer], Model No. [id number], Serial No.[id number]) measurements: stimulation threshold 0.5 V/0.4 ms/ impedance 539 ohms. The R wave amplitude measured 17.0 mV. This It was secured in position with a sleeve sutured at its insertion site. It was then connected to a single chamber pulse generator ([employer], Model No. [id number], Serial No. [id number]), and appropriate VVI pacing was documented. The pulse generator was placed in the pocket and secured into position with a suture through the upper right hand corner of the epoxy header. The subcutaneous tissues were approximated using a running chromic suture and the skin was closed using terri. A dry dressing was applied, and the patient was returned to the recovery room in good condition. The patient has been on warfarin and in light of the depth of his pocket, there was slightly more blood loss with a total of 25 mL. There was no apparent complication. Postoperative EKG confirms appropriate device function. His portable upright chest x-ray postoperatively confirmed appropriate lead position with no pneumothorax. We plan to withhold his oral anticoagulation for a total of an additional 24-48 hours, in light of the depth of his incision. It is now safe for him to be restarted on his negative chronotropic therapy to prevent his rapid ventricular responses. JESSICA
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
[2020-02-19] MEDS ORDERED: CARV12.5 PO (11:53)
[2020-02-19] MEDS ORDERED: ALDA25TA2 PO (11:53)
[2020-02-19] MEDS ORDERED: TORS20TA2 PO (11:53)
[2020-02-19] MEDS ORDERED: DIGO0.253 PO (11:53)
[2020-02-19] MEDS ORDERED: MUCI600T31 PO (11:53)
[2020-02-19] MEDS ORDERED: AMLO1TAB24 PO (11:53)
[2020-02-19] MEDS ORDERED: DOK1CAP7 PO (11:53)
== END 2020-02-19 17:37 | disposition home health service (06) | DRG 242 ==
LOC: M ED 21:40 → M ED INP 02-12 00:15 → ENRESERV 02-12 00:50 → M ICU 02-12 02:34 → M PCU 02-12 16:23
PROVIDERS: ADMIT Internal Medicine; ATTEND Family Medicine
PROC: 02HK3JZ Insertion of Pacemaker Lead into Right Ventricle, Percutaneous Approach (ICD-10-PCS; 2020-02-18)
PROC: 0JH634Z Insertion of Pacemaker, Single Chamber into Chest Subcutaneous Tissue and Fascia, Percutaneous Approach (ICD-10-PCS; principal; 2020-02-18 12:45)
DX: I13.0 Hypertensive heart and chronic kidney disease with heart failure and stage 1 through stage 4 chronic kidney disease, or unspecified chronic kidney disease (principal); I50.31 Acute diastolic (congestive) heart failure; J18.9 Pneumonia, unspecified organism; Z68.43 Body mass index [BMI] 50.0-59.9, adult; I48.21 Permanent atrial fibrillation; N18.30 Chronic kidney disease, stage 3 unspecified; E66.01 Morbid (severe) obesity due to excess calories; I44.39 Other atrioventricular block; I16.0 Hypertensive urgency; Z86.73 Personal history of transient ischemic attack (TIA), and cerebral infarction without residual deficits; E11.9 Type 2 diabetes mellitus without complications; M10.9 Gout, unspecified; G47.33 Obstructive sleep apnea (adult) (pediatric); Z79.899 Other long term (current) drug therapy; Z88.0 Allergy status to penicillin; E78.5 Hyperlipidemia, unspecified; E55.9 Vitamin D deficiency, unspecified

== ENCOUNTER → 2020-02-24 | Outpatient (REF) | payer MEDICARE ==
[~2020-02-24] MED LIST changes: +AMLO1TAB24 PO; +ATOR40TA75 PO; +CARV12.5 PO; +COLC0.6T47 PO; +DIGO0.253 PO; +DOK1CAP7 PO; +FLON1SPR; +METF-838 PO; +METO1TAB7 PO; +MUCI600T31 PO; +PATIENT COMMENT; +RAMI1CAP26 PO; +TORS10TA3 PO; +TORS20TA2 PO; +WARF-18 PO
[2020-02-24 16:11] LABS: ALBUMIN 3.3 GM/DL (3.2-5.2); BLOOD UREA NITROGEN 22 MG/DL (7-18); CARBON DIOXIDE LEVEL 34 MEQ/L (21-32); CHLORIDE LEVEL 106 MEQ/L (98-107); CREATININE FOR GFR 1.19 MG/DL (0.70-1.30); GLOMERULAR FILTRATION RATE > 60.0 (>42); GLUCOSE, FASTING 103 MG/DL (70-100); PHOSPHORUS LEVEL 3.2 MG/DL (2.5-4.9); POTASSIUM SERUM 4.4 MEQ/L (3.5-5.1); SODIUM LEVEL 144 MEQ/L (136-145); URIC ACID 8.1 MG/DL (3.5-7.2)
== END ==
LOC: M SFHCPLAZ 11:54
PROVIDERS: ATTEND Nurse Practitioner Family
DX: M10.9 Gout, unspecified (principal)

== ENCOUNTER → 2020-04-09 | Outpatient (CLI) | payer MEDICARE ==
[2020-04-09 09:40] LABS: BASO # 0.1 10^3/uL (0.0-0.2); BASO % 0.9 % (0.0-1.0); EOS # 0.1 10^3/uL (0.0-0.5); EOS % 1.5 % (0.0-3.0); HEMATOCRIT 43.2 % (42.0-52.0); LYMPH # 1.8 10^3/uL (1.5-5.0); LYMPH % 19.1 % (24.0-44.0); MEAN CORPUSCULAR HEMOGLOBIN 28.1 pg (27.0-33.0); MEAN CORPUSCULAR HGB CONC 30.1 g/dl (32.0-36.5); MEAN CORPUSCULAR VOLUME 93.3 fl (80.0-96.0); MONO # 0.7 10^3/uL (0.0-0.8); MONO % 7.7 % (0.0-5.0); NEUTROPHILS # 6.7 10^3/uL (1.5-8.5); NEUTROPHILS % 70.4 % (36.0-66.0); PLATELET COUNT, AUTOMATED 238 10^3/uL (150-450); RED BLOOD COUNT 4.63 10^6/uL (4.30-6.10); WHITE BLOOD COUNT 9.5 10^3/uL (4.0-10.0)
[2020-04-09 09:49] LABS: APPEARANCE, URINE CLEAR (CLEAR); BACTERIA, URINE AUTO NEGATIVE (NEGATIVE); BILIRUBIN, URINE AUTO NEGATIVE (NEGATIVE); BLOOD, URINE BLOOD NEGATIVE (NEGATIVE); COLOR, URINE YELLOW (YELLOW); GLUCOSE, URINE (UA) AUTO NEGATIVE (NEGATIVE); KETONE, URINE AUTO NEGATIVE (NEGATIVE); LEUKOCYTE ESTERASE, URINE AUTO NEGATIVE (NEGATIVE); MUCUS, URINE SMALL (NEGATIVE); NITRITE, URINE AUTO NEGATIVE (NEGATIVE); PROTEIN, URINE AUTO NEGATIVE (NEGATIVE); RBC, URINE AUTO 1 /HPF (0-3); SQUAMOUS EPITHELIAL CELL UR AU 1 /HPF (0-6); UROBILINOGEN, URINE AUTO 0.2 mg/dL (0.0-2.0); WBC, URINE AUTO 1 /HPF (0-3)
[2020-04-09 09:58] LABS: HEMOGLOBIN A1c 7.1 %
[2020-04-09 10:37] LABS: ALBUMIN 3.3 GM/DL (3.2-5.2); BILIRUBIN,TOTAL 0.6 MG/DL (0.2-1.0); CALCIUM LEVEL 9.1 MG/DL (8.8-10.2); CHOLESTEROL RISK RATIO 3.5 (<5); CREATININE FOR GFR 1.42 MG/DL (0.70-1.30); FREE T4 1.15 NG/DL (0.76-1.46); GLOMERULAR FILTRATION RATE 51.7 (>42); POTASSIUM SERUM 3.7 MEQ/L (3.5-5.1); THYROID STIMULATING HORMONE 2.31 uIU/ML (0.358-3.740); TOTAL PROTEIN 6.4 GM/DL (6.4-8.2); URIC ACID 8.9 MG/DL (3.5-7.2)
[2020-04-09 10:43] LABS: CREATININE, URINE 75.3 MG/DL; MALB URINE SIEMENS 82.8 MG/L; MAU/CREAT RATIO 109.9 MCG/MG (0.0-30.0)
[2020-04-12 23:11] LABS: PSA TOTAL 0.8 ng/mL (0.0-4.0)
== END ==
LOC: M LAB 08:36
PROVIDERS: ATTEND Family Medicine
DX: Z00.00 Encounter for general adult medical examination without abnormal findings (principal); I10 Essential (primary) hypertension; E78.5 Hyperlipidemia, unspecified; M10.9 Gout, unspecified; E11.9 Type 2 diabetes mellitus without complications; I48.91 Unspecified atrial fibrillation; K59.00 Constipation, unspecified

== ENCOUNTER → 2020-06-13 | Outpatient (CLI) | payer MEDICARE ==
[2020-06-13 16:05] LABS: ALBUMIN 3.2 GM/DL (3.2-5.2); CREATININE FOR GFR 1.65 MG/DL (0.70-1.30); GLOMERULAR FILTRATION RATE 43.5 (>42); MAGNESIUM LEVEL 2.2 MG/DL (1.8-2.4); PHOSPHORUS LEVEL 3.2 MG/DL (2.5-4.9); POTASSIUM SERUM 3.9 MEQ/L (3.5-5.1)
== END ==
LOC: M LAB 14:33
PROVIDERS: ATTEND Internal Medicine Cardiovascular Disease
DX: I50.32 Chronic diastolic (congestive) heart failure (principal)

== ENCOUNTER → 2020-06-28 | Outpatient (CLI) | payer MEDICARE, MEDICAID ==
--- NOTE | 2020-06-28 12:46 | REP ---
INDICATION: CAD / CHRONIC CKD III A. COMPARISON: CT 03/01/2019. TECHNIQUE: Real-time sonographic evaluation of the kidneys is performed. FINDINGS: Renal cortical echogenicity pattern is normal bilaterally and contours are smooth. There is no hydronephrosis bilaterally. A hypoechoic nodule in the upper right kidney measures 1.1 x 1.0 x 1.3 cm. There are diffuse internal echoes. There is increased through transmission. This may represent a complicated cyst. A simple benign cyst in the lower pole the right kidney measures 3.4 cm in diameter, another in the mid left kidney measures 1.3 cm and in the lower pole left kidney 4.1 cm. The right kidney measures 10.6 x 5.9 x 5.6 cm. Left renal dimensions are 11.2 x 4.7 x 4.7 cm. The urinary bladder is unremarkable. Ureteral jets could not be visualized in the urinary bladder with Doppler color evaluation. IMPRESSION: No hydronephrosis. Cystic structures bilateral kidneys as discussed in detail above. A small cystic structure in the upper right kidney has a maximum diameter of 1.3 cm and demonstrates internal echoes with increased through transmission. This is most likely a complicated hemorrhagic or proteinaceous cyst. <Electronically signed by Raymundo Ozuna > 06/28/20 [id number]
== END ==
LOC: M RAD 10:59
PROVIDERS: ATTEND Internal Medicine Nephrology
DX: I25.10 Atherosclerotic heart disease of native coronary artery without angina pectoris (principal); N18.31 Chronic kidney disease, stage 3a

== ENCOUNTER → 2020-07-11 | Outpatient (CLI) | payer MEDICARE, MEDICAID ==
[2020-07-11 14:01] LABS: CALCIUM LEVEL 9.6 MG/DL (8.8-10.2); CREATININE FOR GFR 1.55 MG/DL (0.70-1.30); GLOMERULAR FILTRATION RATE 46.6 (>42); POTASSIUM SERUM 4.3 MEQ/L (3.5-5.1)
== END ==
LOC: M LAB 12:15
PROVIDERS: ATTEND Physician Assistant
DX: I50.32 Chronic diastolic (congestive) heart failure (principal)

== ENCOUNTER → 2020-08-17 | Outpatient (CLI) | payer MEDICARE, MEDICAID ==
[2020-08-17 11:10] LABS: APPEARANCE, URINE CLEAR (CLEAR); BACTERIA, URINE AUTO NEGATIVE (NEGATIVE); BASO # 0.1 10^3/uL (0.0-0.2); BASO % 0.6 % (0.0-1.0); BILIRUBIN, URINE AUTO NEGATIVE (NEGATIVE); BLOOD, URINE BLOOD NEGATIVE (NEGATIVE); COLOR, URINE YELLOW (YELLOW); EOS % 0.1 % (0.0-3.0); GLUCOSE, URINE (UA) AUTO NEGATIVE (NEGATIVE); HEMOGLOBIN 12.3 g/dl (13.5-17.5); KETONE, URINE AUTO NEGATIVE (NEGATIVE); LEUKOCYTE ESTERASE, URINE AUTO NEGATIVE (NEGATIVE); LYMPH # 2.2 10^3/uL (1.5-5.0); LYMPH % 20.5 % (24.0-44.0); MEAN CORPUSCULAR HEMOGLOBIN 28.3 pg (27.0-33.0); MEAN CORPUSCULAR VOLUME 94.5 fl (80.0-96.0); MONO # 0.7 10^3/uL (0.0-0.8); MONO % 6.9 % (2.0-8.0); MUCUS, URINE SMALL (NEGATIVE); NEUTROPHILS # 7.7 10^3/uL (1.5-8.5); NEUTROPHILS % 71.4 % (36.0-66.0); NITRITE, URINE AUTO NEGATIVE (NEGATIVE); PLATELET COUNT, AUTOMATED 308 10^3/uL (150-450); PROTEIN, URINE AUTO 1+ mg/dL (NEGATIVE); RBC, URINE AUTO 0 /HPF (0-3); RED BLOOD COUNT 4.34 10^6/uL (4.30-6.10); SQUAMOUS EPITHELIAL CELL UR AU 4 /HPF (0-6); UROBILINOGEN, URINE AUTO 0.2 mg/dL (0.0-2.0); WBC, URINE AUTO 4 /HPF (0-3); WHITE BLOOD COUNT 10.8 10^3/uL (4.0-10.0)
[2020-08-17 11:47] LABS: ALBUMIN 3.3 GM/DL (3.2-5.2); BILIRUBIN,TOTAL 0.4 MG/DL (0.2-1.0); CHOLESTEROL RISK RATIO 4.034 (<5); CREATININE FOR GFR 1.39 MG/DL (0.70-1.30); FREE T4 1.09 NG/DL (0.76-1.46); GLOMERULAR FILTRATION RATE 52.9 (>42); POTASSIUM SERUM 3.7 MEQ/L (3.5-5.1); THYROID STIMULATING HORMONE 1.73 uIU/ML (0.358-3.740); TOTAL PROTEIN 6.6 GM/DL (6.4-8.2); URIC ACID 7.3 MG/DL (3.5-7.2)
[2020-08-17 11:50] LABS: CREATININE, URINE 67.7 MG/DL; MALB URINE SIEMENS 94.9 MG/L; MAU/CREAT RATIO 140.1 MCG/MG (0.0-30.0)
[2020-08-19 00:07] LABS: PSA TOTAL 0.6 ng/mL (0.0-4.0)
== END ==
LOC: M PLALAB 08:21
PROVIDERS: ATTEND Family Medicine
DX: Z00.00 Encounter for general adult medical examination without abnormal findings (principal); E78.5 Hyperlipidemia, unspecified; M10.9 Gout, unspecified; E11.9 Type 2 diabetes mellitus without complications; I10 Essential (primary) hypertension; K59.00 Constipation, unspecified; I48.91 Unspecified atrial fibrillation; R97.20 Elevated prostate specific antigen [PSA]; Z79.01 Long term (current) use of anticoagulants; Z79.84 Long term (current) use of oral hypoglycemic drugs

== ENCOUNTER → 2020-09-24 | Outpatient (CLI) | payer MEDICARE, MEDICAID ==
[~2020-09-24] MED LIST changes: +ALLO300T2 PO; +CLIN-250; -CLIN300C6; +DOK1CAP4 PO; -DOK1CAP7 PO; +ELIQ5TAB PO; +ERGO500029 PO; +SPIR-10 PO
== END ==
LOC: M LABSMTC 11:34
PROVIDERS: ATTEND Anesthesiology
DX: Z01.812 Encounter for preprocedural laboratory examination (principal)

== ENCOUNTER 2020-09-29 07:15 | Day surgery (SDC) | payer MEDICARE, MEDICAID ==
[~2020-09-29] VITALS: Ht 177.8 cm; Wt 127.0 kg
[~2020-09-29 07:15] MED LIST changes: -CLIN-250; +CLIN300C6; -DOK1CAP4 PO; +DOK1CAP7 PO; +NS 1,000 ML IV ONE
[2020-09-29] MEDS ORDERED: LIDOCAINE 2% 100MG/5ML SDV (FOR ANES.) As Ordered ONE (07:22)
[2020-09-29] MEDS ORDERED: propofoL 200 MG/20 ML VIAL As Ordered ONE ×2 (07:22→07:59)
--- NOTE | 2020-09-29 08:20 | ROOR ---
Patient Name: Geoffrey Hooker Procedure Date: 09/29/2020 7:47 AM Date of : 1945 Age: 75 Room: [facility] Gender: Male Note Status: Finalized Procedure: Colonoscopy Indications: High risk colon cancer surveillance: Personal history of colonic polyps Providers: Juan R Esposito Jr, MD Referring MD: JESUS TAVARES MD Requesting Provider: Medicines: Propofol per Anesthesia Complications: No immediate complications. Procedure: Pre-Anesthesia Assessment: - Prior to the procedure, a History and Physical was performed, and patient medications and allergies were reviewed. The patient is competent. The risks and benefits of the procedure and the sedation options and risks were discussed with the patient. All questions were answered and informed consent was obtained. Patient identification and proposed procedure were verified by the physician and the nurse in the pre-procedure area and in the procedure room. Mental Status Examination: alert and oriented. Airway Examination: normal oropharyngeal airway and neck mobility. Respiratory Examination: clear to auscultation. CV Examination: normal. ASA Grade Assessment: II - A patient with mild systemic disease. After reviewing the risks and benefits, the patient was deemed in satisfactory condition to undergo the procedure. The anesthesia plan was to use moderate sedation / analgesia (conscious sedation). Immediately prior to administration of medications, the patient was re-assessed for adequacy to receive sedatives. The heart rate, respiratory rate, oxygen saturations, blood pressure, adequacy of pulmonary ventilation, and response to care were monitored throughout the procedure. The physical status of the patient was re-assessed after the procedure. The Colonoscope was introduced through the anus and advanced to the ileocecal valve. The colonoscopy was performed with moderate difficulty due to a redundant colon. Successful completion of the procedure was aided by using manual pressure. Findings: The recto-sigmoid colon, descending colon, transverse colon, ascending colon and ileocecal valve appeared normal. A small polyp was found in the rectum. The polyp was removed with a cold snare. Resection and retrieval were complete. Multiple small and large-mouthed diverticula were found in the sigmoid colon. Impression: - The recto-sigmoid colon, descending colon, transverse colon, ascending colon and ileocecal valve are normal. - One small polyp in the rectum, removed with a cold snare. Resected and retrieved. - Diverticulosis in the sigmoid colon. Recommendation: - Discharge patient to home (ambulatory). - Repeat colonoscopy in 5 years for surveillance. Procedure Code(s): --- Professional --- 88069, Colonoscopy, flexible; with removal of tumor(s), polyp(s), or other lesion(s) by snare technique Diagnosis Code(s): --- Professional --- Z86.010, Personal history of colonic polyps K62.1, Rectal polyp K57.30, Diverticulosis of large intestine without perforation or abscess without bleeding CPT copyright 2019 [employer]. All rights reserved. The codes documented in this report are preliminary and upon facility coordinator review may be revised to meet current compliance requirements. Juan R Esposito MD Juan R Esposito Jr, MD 09/29/2020 8:19:49 AM Electronically signed by Juan R Esposito Jr, MD Number of Addenda: 0 Note Initiated On: 09/29/2020 7:47 AM Estimated Blood Loss: Estimated blood loss: none.
[2020-09-29 08:40] VITALS: BP 147/78
== END 2020-09-29 09:10 | disposition home or self-care (01) ==
LOC: M OPP 07:15
PROVIDERS: ATTEND Surgery
DX: Z12.11 Encounter for screening for malignant neoplasm of colon (principal); Z86.010 Personal history of colon polyps; K62.1 Rectal polyp; K57.30 Diverticulosis of large intestine without perforation or abscess without bleeding; I48.91 Unspecified atrial fibrillation; I50.9 Heart failure, unspecified; Z95.0 Presence of cardiac pacemaker; E11.9 Type 2 diabetes mellitus without complications; Z79.82 Long term (current) use of aspirin; Z79.84 Long term (current) use of oral hypoglycemic drugs; Z79.899 Other long term (current) drug therapy; Z88.0 Allergy status to penicillin; Z86.73 Personal history of transient ischemic attack (TIA), and cerebral infarction without residual deficits

== ENCOUNTER → 2020-09-30 | Outpatient (CLI) | payer MEDICARE, MEDICAID ==
[~2020-09-30] MED LIST changes: -NS 1,000 ML IV ONE
--- NOTE | 2020-09-30 16:08 | REP ---
INDICATION: COUGH. COMPARISON: Comparison chest x-ray February 19, 2020. TECHNIQUE: Three views... FINDINGS: The lungs are hyperinflated with an increase in the AP diameter of the chest consistent with some degree of COPD. There is moderate cardiac enlargement. Cardiothoracic ratio measures 53.3%. A unipolar pacemaker is again seen. Pulmonary vasculature is cephalized but somewhat improved from the February 19, 2020 study. There are 2 granulomatous calcifications in the right perihilar region unchanged. There are degenerative changes in the thoracic spine. IMPRESSION: CHF pattern with cardiomegaly, pacemaker, vascular congestion. Hyperinflation consistent with some degree of COPD.. <Electronically signed by Spencer Bernal > 09/30/20 [id number]
== END ==
LOC: M WUC 13:56
PROVIDERS: ATTEND Nurse Practitioner Family
DX: R91.8 Other nonspecific abnormal finding of lung field (principal); R09.89 Other specified symptoms and signs involving the circulatory and respiratory systems; M51.34 Other intervertebral disc degeneration, thoracic region

== ENCOUNTER → 2020-11-25 | Outpatient (CLI) | payer MEDICARE, MEDICAID ==
[~2020-11-25] MED LIST changes: +DOK1CAP4 PO; -DOK1CAP7 PO
[2020-11-25 11:07] LABS: CALCIUM LEVEL 9.3 MG/DL (8.8-10.2); CHOLESTEROL RISK RATIO 4.857 (<5); CREATININE FOR GFR 1.59 MG/DL (0.70-1.30); GLOMERULAR FILTRATION RATE 45.3 (>42)
== END ==
LOC: M PLALAB 08:30
PROVIDERS: ATTEND Physician Assistant
DX: I50.32 Chronic diastolic (congestive) heart failure (principal); Z79.01 Long term (current) use of anticoagulants; E78.2 Mixed hyperlipidemia

== ENCOUNTER → 2020-11-25 | Outpatient (CLI) | payer MEDICARE, MEDICAID ==
[2020-11-25 10:31] LABS: BASO # 0.1 10^3/uL (0.0-0.2); BASO % 0.6 % (0.0-1.0); EOS # 0.1 10^3/uL (0.0-0.5); EOS % 0.7 % (0.0-3.0); HEMATOCRIT 41.8 % (42.0-52.0); HEMOGLOBIN 13.1 g/dl (13.5-17.5); LYMPH # 2.4 10^3/uL (1.5-5.0); LYMPH % 19.7 % (24.0-44.0); MEAN CORPUSCULAR HEMOGLOBIN 29.8 pg (27.0-33.0); MEAN CORPUSCULAR HGB CONC 31.3 g/dl (32.0-36.5); MONO # 0.7 10^3/uL (0.0-0.8); MONO % 5.9 % (2.0-8.0); NEUTROPHILS # 8.7 10^3/uL (1.5-8.5); NEUTROPHILS % 72.4 % (36.0-66.0); PLATELET COUNT, AUTOMATED 267 10^3/uL (150-450)
[2020-11-25 11:16] LABS: ALBUMIN 3.3 GM/DL (3.2-5.2); ALT/SGPT 29 U/L (12-78); BILIRUBIN,TOTAL 0.4 MG/DL (0.2-1.0); BLOOD UREA NITROGEN 34 MG/DL (7-18); CALCIUM LEVEL 9.3 MG/DL (8.8-10.2); CARBON DIOXIDE LEVEL 30 MEQ/L (21-32); CHLORIDE LEVEL 105 MEQ/L (98-107); CREATININE FOR GFR 1.56 MG/DL (0.70-1.30); FOLATE 7.3 NG/ML (>5.4); GLOMERULAR FILTRATION RATE 46.3 (>42); GLUCOSE, FASTING 184 MG/DL (70-100); POTASSIUM SERUM 3.9 MEQ/L (3.5-5.1); RHEUMATOID FACTOR QUANT < 10.0 IU/ML (<15.0); SODIUM LEVEL 143 MEQ/L (136-145); TOTAL PROTEIN 6.8 GM/DL (6.4-8.2); VITAMIN B12 LEVEL 454 PG/ML (247-911)
[2020-11-25 11:34] LABS: ERYTHROCYTE SEDIMENTATION RATE 52 mm/hr (0-20)
== END ==
LOC: M PLALAB 08:27
PROVIDERS: ATTEND Physician Assistant Medical
DX: I50.9 Heart failure, unspecified (principal); Z86.73 Personal history of transient ischemic attack (TIA), and cerebral infarction without residual deficits; Z79.01 Long term (current) use of anticoagulants; Z79.899 Other long term (current) drug therapy

== ENCOUNTER → 2020-11-29 | Outpatient (REF) | payer MEDICARE, MEDICAID | LOC: M LAB REF 17:08 | PROVIDERS: ATTEND Internal Medicine Nephrology | DX: N18.31 Chronic kidney disease, stage 3a (principal) ==

== ENCOUNTER → 2021-03-31 | Outpatient (REF) | payer MEDICARE, MEDICAID ==
[~2021-03-31] MED LIST changes: +CLIN-250; -CLIN300C6
== END ==
LOC: M LAB REF 17:05
PROVIDERS: ATTEND Nurse Practitioner Family
DX: N18.31 Chronic kidney disease, stage 3a (principal)

== ENCOUNTER → 2021-07-20 | Outpatient (CLI) | payer MEDICARE, MEDICAID ==
[2021-07-20 10:37] LABS: APPEARANCE, URINE HAZY (CLEAR); BACTERIA, URINE AUTO NEGATIVE (NEGATIVE); BILIRUBIN, URINE AUTO NEGATIVE (NEGATIVE); BLOOD, URINE BLOOD NEGATIVE (NEGATIVE); COLOR, URINE YELLOW (YELLOW); GLUCOSE, URINE (UA) AUTO NEGATIVE (NEGATIVE); KETONE, URINE AUTO NEGATIVE (NEGATIVE); LEUKOCYTE ESTERASE, URINE AUTO NEGATIVE (NEGATIVE); NITRITE, URINE AUTO NEGATIVE (NEGATIVE); PROTEIN, URINE AUTO NEGATIVE (NEGATIVE); RBC, URINE AUTO 0 /HPF (0-3); SPECIFIC GRAVITY URINE AUTO 1.012 (1.002-1.035); SQUAMOUS EPITHELIAL CELL UR AU 4 /HPF (0-6); UROBILINOGEN, URINE AUTO 0.2 mg/dL (0.0-2.0); WBC, URINE AUTO 2 /HPF (0-3)
[2021-07-20 11:28] LABS: ALBUMIN 3.5 GM/DL (3.2-5.2); ALT/SGPT 40 U/L (12-78); BILIRUBIN,TOTAL 0.4 MG/DL (0.2-1.0); BLOOD UREA NITROGEN 58 MG/DL (7-18); CALCIUM LEVEL 9.6 MG/DL (8.8-10.2); CARBON DIOXIDE LEVEL 25 MEQ/L (21-32); CHLORIDE LEVEL 110 MEQ/L (98-107); CHOLESTEROL LEVEL 115 MG/DL (<200); CHOLESTEROL RISK RATIO 4.259 (<5); FREE T4 0.97 NG/DL (0.76-1.46); GLOMERULAR FILTRATION RATE 39.1 (>42); GLUCOSE, FASTING 127 MG/DL (70-100); HDL CHOLESTEROL 27 MG/DL (>40); LDL CHOLESTEROL 46 MG/DL (<100); NON-HDL-C 88 MG/DL; NT-PRO BNP 1346 PG/ML (<450); POTASSIUM SERUM 4.3 MEQ/L (3.5-5.1); SODIUM LEVEL 142 MEQ/L (136-145); TRIGLYCERIDES LEVEL 208 MG/DL (<150); URIC ACID 5.7 MG/DL (3.5-7.2)
[2021-07-20 11:40] LABS: BASO # 0.1 10^3/uL (0.0-0.2); BASO % 0.5 % (0.0-1.0); EOS # 0.1 10^3/uL (0.0-0.5); EOS % 0.8 % (0.0-3.0); HEMATOCRIT 38.6 % (42.0-52.0); HEMOGLOBIN 11.9 g/dl (13.5-17.5); LYMPH # 2.7 10^3/uL (1.5-5.0); LYMPH % 22.9 % (24.0-44.0); MEAN CORPUSCULAR HEMOGLOBIN 30.1 pg (27.0-33.0); MEAN CORPUSCULAR HGB CONC 30.8 g/dl (32.0-36.5); MEAN CORPUSCULAR VOLUME 97.7 fl (80.0-96.0); MONO # 0.8 10^3/uL (0.0-0.8); MONO % 6.6 % (2.0-8.0); NEUTROPHILS # 8.1 10^3/uL (1.5-8.5); NEUTROPHILS % 68.6 % (36.0-66.0); PLATELET COUNT, AUTOMATED 299 10^3/uL (150-450); RED BLOOD COUNT 3.95 10^6/uL (4.30-6.10); WHITE BLOOD COUNT 11.8 10^3/uL (4.0-10.0)
[2021-07-20 11:43] LABS: HEMOGLOBIN A1c 6.2 %
[2021-07-20 13:19] LABS: CREATININE, URINE 63.9 MG/DL; MALB URINE SIEMENS 14.7 MG/L
[2021-07-21 08:26] LABS: ALBUMIN 3.76 GM/DL (3.29-5.55); ALBUMIN % 53.7 % (55.8-66.1); ALPHA-1-GLOBULINS 0.35 GM/DL (0.17-0.41); ALPHA-2-GLOBULINS % 15.7 % (7.1-11.8); BETA-1-GLOBULINS 0.35 GM/DL (0.28-0.60); BETA-2-GLOBULINS % 5.7 % (3.2-6.5); GAMMA GLOBULIN % 14.9 % (11.1-18.8); GAMMA GLOBULINS 1.04 GM/DL (0.65-1.58)
[2021-07-21 23:09] LABS: PSA TOTAL 0.6 ng/mL (0.0-4.0)
== END ==
LOC: M PLALAB 07:46
PROVIDERS: ATTEND Family Medicine
DX: Z00.00 Encounter for general adult medical examination without abnormal findings (principal); E78.5 Hyperlipidemia, unspecified; M10.9 Gout, unspecified; I10 Essential (primary) hypertension; K59.00 Constipation, unspecified; I48.91 Unspecified atrial fibrillation; R63.4 Abnormal weight loss; E10.49 Type 1 diabetes mellitus with other diabetic neurological complication; R97.20 Elevated prostate specific antigen [PSA]; Z79.01 Long term (current) use of anticoagulants

== ENCOUNTER → 2021-11-13 | Outpatient (CLI) | payer MEDICARE, MEDICAID ==
[~2021-11-13] MED LIST changes: +AZEL0.055; +BASA100I; +FARX1TAB5; +JANU25TA; +RAMI1CAP24 PO; +[UNRECOGNIZED DRUG - OTHER] PO
[2021-11-13 12:31] LABS: CALCIUM LEVEL 9.3 MG/DL (8.8-10.2); CREATININE FOR GFR 2.28 MG/DL (0.70-1.30); GLOMERULAR FILTRATION RATE 29.8 (>42); MAGNESIUM LEVEL 2.8 MG/DL (1.8-2.4); POTASSIUM SERUM 4.5 MEQ/L (3.5-5.1)
== END ==
LOC: M LAB 10:06
PROVIDERS: ATTEND Physician Assistant
DX: I50.32 Chronic diastolic (congestive) heart failure (principal); Z79.01 Long term (current) use of anticoagulants

== ENCOUNTER → 2021-11-23 | Outpatient (CLI) | payer MEDICARE, MEDICAID | LOC: M PLARAD 07:39 | PROVIDERS: ATTEND Family Medicine | DX: C22.9 Malignant neoplasm of liver, not specified as primary or secondary (principal) | CPT/HCPCS: 78815; A9552 ==

== ENCOUNTER → 2021-12-13 | Outpatient (CLI) | payer MEDICARE, MEDICAID | LOC: M ONCR 15:06 | PROVIDERS: ATTEND General Practice | DX: C22.9 Malignant neoplasm of liver, not specified as primary or secondary (principal); M84.411A Pathological fracture, right shoulder, initial encounter for fracture; E11.9 Type 2 diabetes mellitus without complications; I50.9 Heart failure, unspecified; Z79.01 Long term (current) use of anticoagulants; Z79.4 Long term (current) use of insulin; Z79.811 Long term (current) use of aromatase inhibitors; Z79.84 Long term (current) use of oral hypoglycemic drugs; Z79.899 Other long term (current) drug therapy; Z80.8 Family history of malignant neoplasm of other organs or systems; Z82.3 Family history of stroke; Z86.73 Personal history of transient ischemic attack (TIA), and cerebral infarction without residual deficits; Z88.0 Allergy status to penicillin; Z91.030 Bee allergy status; Z95.0 Presence of cardiac pacemaker ==

== ENCOUNTER → 2022-01-04 | Outpatient (CLI) | payer MEDICARE, MEDICAID ==
[~2022-01-04] MED LIST changes: +LIDOCAINE 1% MDV 20ML VIAL As Ordered ONE
[2022-01-04 09:33] VITALS: BP 138/69
== END ==
LOC: M IRPRO 08:22
PROVIDERS: ATTEND General Practice
DX: C79.51 Secondary malignant neoplasm of bone (principal)

== ENCOUNTER → 2022-01-12 | Outpatient (CLI) | payer MEDICARE, MEDICAID ==
[~2022-01-12] MED LIST changes: -LIDOCAINE 1% MDV 20ML VIAL As Ordered ONE
== END ==
LOC: M ONCR 14:57
PROVIDERS: ATTEND General Practice
DX: C22.9 Malignant neoplasm of liver, not specified as primary or secondary (principal); C79.51 Secondary malignant neoplasm of bone; N18.9 Chronic kidney disease, unspecified; Z79.4 Long term (current) use of insulin; Z79.84 Long term (current) use of oral hypoglycemic drugs; Z79.899 Other long term (current) drug therapy; Z88.0 Allergy status to penicillin; Z91.030 Bee allergy status; Z95.0 Presence of cardiac pacemaker

== ENCOUNTER 2022-02-14 12:15 | Outpatient (RCR) | payer MEDICARE, MEDICAID ==
[~2022-02-14 12:15] MED LIST changes: +ONDA-84 PO
[2022-02-15] MEDS ORDERED: FLUC100T3 PO (13:31)
[2022-03-21] MEDS ORDERED: NYST-13 (15:00)
== END 2022-02-14 23:59 | disposition home or self-care (01) ==
LOC: M ONCR 12:15
PROVIDERS: ATTEND General Practice
DX: C22.1 Intrahepatic bile duct carcinoma (principal); C79.51 Secondary malignant neoplasm of bone

== ENCOUNTER 2022-02-16 12:15 | Outpatient (RCR) | payer MEDICARE, MEDICAID ==
[~2022-02-16 12:15] MED LIST changes: +FLUC100T3 PO
[2022-03-21] MEDS ORDERED: NYST-13 (15:00)
== END 2022-03-17 ==
LOC: M ONCR 12:15
PROVIDERS: ATTEND General Practice
DX: C22.1 Intrahepatic bile duct carcinoma (principal)

== ENCOUNTER → 2022-05-07 | Outpatient (CLI) | payer MEDICARE, MEDICAID ==
[~2022-05-07] MED LIST changes: +GASTROGRAFIN SOLUTION 30ML As Ordered ONE; +ISOVUE-370 76% 100ML VIAL As Ordered ONE; +NYST-13
== END ==
LOC: M RAD 11:38
PROVIDERS: ATTEND General Practice
DX: C22.1 Intrahepatic bile duct carcinoma (principal); C79.51 Secondary malignant neoplasm of bone
CPT/HCPCS: 71260; 74177; Q9963; Q9967

== ENCOUNTER → 2022-05-14 | Outpatient (CLI) | payer MEDICARE, MEDICAID ==
[~2022-05-14] MED LIST changes: -GASTROGRAFIN SOLUTION 30ML As Ordered ONE; -ISOVUE-370 76% 100ML VIAL As Ordered ONE
[2022-05-14 09:27] LABS: BASO # 0.1 10^3/uL (0.0-0.2); BASO % 0.6 % (0.0-1.0); EOS # 0.1 10^3/uL (0.0-0.5); EOS % 0.6 % (0.0-3.0); HEMOGLOBIN 11.3 g/dl (13.5-17.5); LYMPH # 1.3 10^3/uL (1.5-5.0); LYMPH % 13.2 % (24.0-44.0); MEAN CORPUSCULAR HEMOGLOBIN 29.8 pg (27.0-33.0); MEAN CORPUSCULAR HGB CONC 30.5 g/dl (32.0-36.5); MEAN CORPUSCULAR VOLUME 97.6 fl (80.0-96.0); MONO # 0.9 10^3/uL (0.0-0.8); MONO % 8.9 % (2.0-8.0); NEUTROPHILS # 7.5 10^3/uL (1.5-8.5); NEUTROPHILS % 76.2 % (36.0-66.0); PLATELET COUNT, AUTOMATED 212 10^3/uL (150-450); RED BLOOD COUNT 3.79 10^6/uL (4.30-6.10); WHITE BLOOD COUNT 9.8 10^3/uL (4.0-10.0)
[2022-05-14 09:36] LABS: APPEARANCE, URINE HAZY (CLEAR); BACTERIA, URINE AUTO NEGATIVE (NEGATIVE); BILIRUBIN, URINE AUTO NEGATIVE (NEGATIVE); BLOOD, URINE BLOOD NEGATIVE (NEGATIVE); COLOR, URINE YELLOW (YELLOW); GLUCOSE, URINE (UA) AUTO 1+ mg/dL (NEGATIVE); KETONE, URINE AUTO NEGATIVE (NEGATIVE); LEUKOCYTE ESTERASE, URINE AUTO NEGATIVE (NEGATIVE); MUCUS, URINE SMALL (NEGATIVE); NITRITE, URINE AUTO NEGATIVE (NEGATIVE); PROTEIN, URINE AUTO NEGATIVE (NEGATIVE); RBC, URINE AUTO 0 /HPF (0-3); SPECIFIC GRAVITY URINE AUTO 1.011 (1.002-1.035); SQUAMOUS EPITHELIAL CELL UR AU 6 /HPF (0-6); UROBILINOGEN, URINE AUTO 0.2 mg/dL (0.0-2.0); WBC, URINE AUTO 1 /HPF (0-3)
[2022-05-14 10:04] LABS: URIC ACID 5.7 MG/DL (3.7-9.2)
[2022-05-14 10:05] LABS: CREATININE, URINE 70.2 MG/DL; MAU/CREAT RATIO 21.3 MCG/MG (0.0-30.0)
[2022-05-14 10:19] LABS: ALBUMIN 3.2 G/DL (3.2-5.2); BILIRUBIN,TOTAL 0.4 MG/DL (0.3-1.2); CALCIUM LEVEL 9.1 MG/DL (8.3-10.6); CHOLESTEROL RISK RATIO 4.27 (<5); CREATININE FOR GFR 1.77 MG/DL (0.70-1.30); FREE T4 0.93 NG/DL (0.89-1.76); GLOMERULAR FILTRATION RATE 39.9 (>42); HDL CHOLESTEROL 21.5 MG/DL (>40); POTASSIUM SERUM 4.2 MMOL/L (3.5-5.1); THYROID STIMULATING HORMONE 2.792 uIU/ML (0.55-4.78)
[2022-05-14 10:37] LABS: LDL CHOLESTEROL 33.3 MG/DL (<100); TOTAL PROTEIN 6.3 G/DL (5.7-8.2)
[2022-05-16 00:10] LABS: PSA TOTAL 0.7 ng/mL (0.0-4.0)
== END ==
LOC: M LAB 08:35
PROVIDERS: ATTEND Family Medicine
DX: Z00.00 Encounter for general adult medical examination without abnormal findings (principal); E78.5 Hyperlipidemia, unspecified; M10.9 Gout, unspecified; I10 Essential (primary) hypertension; E11.9 Type 2 diabetes mellitus without complications

== ENCOUNTER → 2022-05-18 | Outpatient (CLI) | payer MEDICARE, MEDICAID | LOC: M ONCR 14:41 | PROVIDERS: ATTEND General Practice | DX: C22.1 Intrahepatic bile duct carcinoma (principal); C79.51 Secondary malignant neoplasm of bone; Z79.01 Long term (current) use of anticoagulants; Z79.4 Long term (current) use of insulin; Z79.84 Long term (current) use of oral hypoglycemic drugs; Z79.811 Long term (current) use of aromatase inhibitors; Z79.899 Other long term (current) drug therapy; Z88.0 Allergy status to penicillin; Z91.030 Bee allergy status; Z92.3 Personal history of irradiation ==

== ENCOUNTER → 2022-07-05 | Outpatient (CLI) | payer MEDICARE, MEDICAID | LOC: M ONCR 14:03 | PROVIDERS: ATTEND General Practice | DX: C22.1 Intrahepatic bile duct carcinoma (principal); C79.51 Secondary malignant neoplasm of bone; R19.7 Diarrhea, unspecified; Z79.01 Long term (current) use of anticoagulants; Z79.4 Long term (current) use of insulin; Z79.51 Long term (current) use of inhaled steroids; Z79.811 Long term (current) use of aromatase inhibitors; Z79.84 Long term (current) use of oral hypoglycemic drugs; Z79.899 Other long term (current) drug therapy; Z88.0 Allergy status to penicillin; Z91.030 Bee allergy status; Z92.3 Personal history of irradiation ==

== ENCOUNTER 2022-07-10 11:00 | Outpatient (RCR) | payer MEDICARE, MEDICAID ==
[~2022-07-10 11:00] MED LIST changes: -AZEL0.055; +AZEL0.055 NARES; -BASA100I; +BASA100I SC; -FARX1TAB5; +FARX1TAB5 PO; -FLON1SPR; +FLON1SPR NARES; -NYST-13; +NYST-13 TOP
[2022-07-11] MEDS ORDERED: ATOR80TA59 PO (17:50)
[2022-07-11] MEDS ORDERED: SITA50TAB PO (17:50)
[2022-07-11] MEDS ORDERED: TORS20TA2 PO (17:51)
[2022-07-11] MEDS ORDERED: CARV12.5 PO (17:51)
[2022-07-11] MEDS ORDERED: AZEL1SPR3 NARES (17:51)
== END 2022-07-15 ==
LOC: M ONCR 11:00
PROVIDERS: ATTEND General Practice
DX: C22.1 Intrahepatic bile duct carcinoma (principal); C79.51 Secondary malignant neoplasm of bone

== ENCOUNTER 2022-07-11 13:14 | Inpatient (IN) | payer MEDICARE, MEDICAID ==
[~2022-07-11] VITALS: Ht 167.6 cm; Wt 107.3 kg
[2022-07-11 14:29] LABS: BASO % 0.3 % (0.0-1.0); EOS % 0.3 % (0.0-3.0); HEMATOCRIT 37.9 % (42.0-52.0); HEMOGLOBIN 11.9 g/dl (13.5-17.5); LYMPH % 9.8 % (24.0-44.0); MEAN CORPUSCULAR HEMOGLOBIN 30.4 pg (27.0-33.0); MEAN CORPUSCULAR HGB CONC 31.4 g/dl (32.0-36.5); MEAN CORPUSCULAR VOLUME 96.7 fl (80.0-96.0); MONO # 0.7 10^3/uL (0.0-0.8); NEUTROPHILS # 8.4 10^3/uL (1.5-8.5); PLATELET COUNT, AUTOMATED 222 10^3/uL (150-450); RED BLOOD COUNT 3.92 10^6/uL (4.30-6.10); WHITE BLOOD COUNT 10.2 10^3/uL (4.0-10.0)
[2022-07-11 14:41] LABS: INR 1.23; PROTHROMBIN TIME 15.8 SECONDS (12.5-14.5)
[2022-07-11 14:42] LABS: PARTIAL THROMBOPLASTIN TIME 34.3 SECONDS (24.8-34.2)
[2022-07-11 14:54] LABS: BILIRUBIN,DIRECT 0.2 MG/DL (<0.4); BILIRUBIN,TOTAL 0.4 MG/DL (0.3-1.2); CALCIUM LEVEL 11.2 MG/DL (8.3-10.6); CREATININE FOR GFR 1.29 MG/DL (0.70-1.30); GLOMERULAR FILTRATION RATE 57.3 (>42); POTASSIUM SERUM 4.4 MMOL/L (3.5-5.1); TOTAL PROTEIN 5.9 G/DL (5.7-8.2)
[2022-07-11 15:07] LABS: RSV AMPLIFICATION NEGATIVE (NEGATIVE)
[2022-07-11] MEDS ORDERED: ISOVUE-370 76% 100ML VIAL As Ordered ONE (15:16)
[2022-07-11] MEDS ORDERED: SITA50TAB PO (17:50)
[2022-07-11] MEDS ORDERED: ATOR80TA59 PO (17:50)
[2022-07-11] MEDS ORDERED: CARV12.5 PO (17:51)
[2022-07-11] MEDS ORDERED: TORS20TA2 PO (17:51)
[2022-07-11] MEDS ORDERED: AZEL1SPR3 NARES (17:51)
[2022-07-11] MEDS ORDERED: HOME MED LIST COMPLETE! XX SCH (17:55)
[2022-07-11] MEDS ORDERED: GLUCOSE 4GM CHEW TABLET PO PRN (19:05)
[2022-07-11] MEDS ORDERED: DEXTROSE 50% 50ML SYRINGE IV PRN (19:05)
[2022-07-11] MEDS ORDERED: FLUTICASONE PROP 0.05% NASAL SPRAY 16 GM (FLONASE) NARES PRN (19:05)
[2022-07-11] MEDS ORDERED: GLUCAGON INJ 1MG VIAL SC PRN (19:05)
[2022-07-11 20:30] LABS: HEMATOCRIT 38.7 % (42.0-52.0); HEMOGLOBIN 12.3 g/dl (13.5-17.5)
[2022-07-11] MEDS: INSULIN LISPRO (NovoLOG) PER UNIT SC SCH (21:00)
[2022-07-11 21:55] VITALS: BP 138/72
[2022-07-11] MEDS: CARVedilol 6.25 MG TAB PO SCH (22:04)
[2022-07-11] MEDS: ATORVASTATIN 20 MG TAB PO SCH (22:04)
[2022-07-11] MEDS: allopurinoL 300 MG TAB PO SCH (22:04)
[2022-07-11] MEDS: LORATADINE 10 MG TAB PO SCH (22:05)
[2022-07-11] MEDS: NS 1,000 ML IV SCH (22:05)
[2022-07-11 23:52] VITALS: BP 128/67
[2022-07-12 03:43] VITALS: BP 117/59
[2022-07-12 05:32] LABS: HEMATOCRIT 36.9 % (42.0-52.0); HEMOGLOBIN 11.4 g/dl (13.5-17.5); MEAN CORPUSCULAR HEMOGLOBIN 29.7 pg (27.0-33.0); MEAN CORPUSCULAR HGB CONC 30.9 g/dl (32.0-36.5); MEAN CORPUSCULAR VOLUME 96.1 fl (80.0-96.0); PLATELET COUNT, AUTOMATED 211 10^3/uL (150-450); RED BLOOD COUNT 3.84 10^6/uL (4.30-6.10); WHITE BLOOD COUNT 8.8 10^3/uL (4.0-10.0)
[2022-07-12 06:00] LABS: ALBUMIN 2.7 G/DL (3.2-5.2); ALKALINE PHOSPHATASE 262 U/L (46-116); ALT/SGPT 34 U/L (7.0-40); AST/SGOT 47 U/L (<34); BILIRUBIN,TOTAL 0.3 MG/DL (0.3-1.2); BLOOD UREA NITROGEN 35 MG/DL (9-23); CARBON DIOXIDE LEVEL 26 MMOL/L (20-31); CHLORIDE LEVEL 110 MMOL/L (98-107); CREATININE FOR GFR 1.12 MG/DL (0.70-1.30); GLOMERULAR FILTRATION RATE > 60.0 (>42); GLUCOSE, FASTING 94 MG/DL (74-106); POTASSIUM SERUM 4.5 MMOL/L (3.5-5.1); SODIUM LEVEL 140 MMOL/L (136-145); TOTAL PROTEIN 5.5 G/DL (5.7-8.2)
[2022-07-12] MEDS: NYSTATIN 100,000 UNITS/GM TOPICAL PWD 15GM TOP PRN (06:03)
[2022-07-12] MEDS: INSULIN LISPRO (NovoLOG) PER UNIT SC SCH ×4 (07:30→20:42)
[2022-07-12 08:06] VITALS: BP 120/60
[2022-07-12] MEDS: TAMSULOSIN 0.4 MG CAP PO SCH (09:17)
[2022-07-12] MEDS: CARVedilol 6.25 MG TAB PO SCH ×2 (09:20→20:41)
[2022-07-12] MEDS ORDERED: BISACODYL 10MG SUPP PR ONE (10:15)
[2022-07-12] MEDS: MIRALAX *UNIT DOSE* 17GM PACKET PO SCH ×2 (10:25→20:40)
[2022-07-12 11:38] VITALS: BP 137/66
[2022-07-12] MEDS: NS 1,000 ML IV SCH (12:12)
[2022-07-12 15:43] VITALS: BP 124/60
[2022-07-12 20:11] VITALS: BP 150/76
[2022-07-12] MEDS: ATORVASTATIN 20 MG TAB PO SCH (20:41)
[2022-07-12] MEDS: allopurinoL 300 MG TAB PO SCH (20:41)
[2022-07-12] MEDS: LORATADINE 10 MG TAB PO SCH (20:41)
[2022-07-12 23:39] VITALS: BP 149/70
[2022-07-13] MEDS: NS 1,000 ML IV SCH ×2 (01:54→13:07)
[2022-07-13 04:17] VITALS: BP 111/51
[2022-07-13 05:41] LABS: BASO # 0.1 10^3/uL (0.0-0.2); BASO % 0.5 % (0.0-1.0); EOS # 0.1 10^3/uL (0.0-0.5); EOS % 0.8 % (0.0-3.0); HEMATOCRIT 36.8 % (42.0-52.0); HEMOGLOBIN 11.3 g/dl (13.5-17.5); LYMPH # 1.6 10^3/uL (1.5-5.0); LYMPH % 16.2 % (24.0-44.0); MEAN CORPUSCULAR HEMOGLOBIN 29.8 pg (27.0-33.0); MEAN CORPUSCULAR HGB CONC 30.7 g/dl (32.0-36.5); MEAN CORPUSCULAR VOLUME 97.1 fl (80.0-96.0); MONO # 0.9 10^3/uL (0.0-0.8); MONO % 9.5 % (2.0-8.0); NEUTROPHILS # 6.9 10^3/uL (1.5-8.5); NEUTROPHILS % 72.5 % (36.0-66.0); PLATELET COUNT, AUTOMATED 195 10^3/uL (150-450); RED BLOOD COUNT 3.79 10^6/uL (4.30-6.10); WHITE BLOOD COUNT 9.5 10^3/uL (4.0-10.0)
[2022-07-13 06:06] LABS: ALBUMIN 2.7 G/DL (3.2-5.2); ALKALINE PHOSPHATASE 256 U/L (46-116); ALT/SGPT 34 U/L (7.0-40); AST/SGOT 63 U/L (<34); BILIRUBIN,TOTAL 0.3 MG/DL (0.3-1.2); BLOOD UREA NITROGEN 29 MG/DL (9-23); CALCIUM LEVEL 10.7 MG/DL (8.3-10.6); CARBON DIOXIDE LEVEL 23 MMOL/L (20-31); CHLORIDE LEVEL 109 MMOL/L (98-107); CREATININE FOR GFR 0.99 MG/DL (0.70-1.30); GLOMERULAR FILTRATION RATE > 60.0 (>42); GLUCOSE, FASTING 102 MG/DL (74-106); POTASSIUM SERUM 4.6 MMOL/L (3.5-5.1); SODIUM LEVEL 141 MMOL/L (136-145); TOTAL PROTEIN 5.6 G/DL (5.7-8.2)
[2022-07-13] MEDS: INSULIN LISPRO (NovoLOG) PER UNIT SC SCH ×4 (07:30→21:00)
[2022-07-13 07:53] VITALS: BP 155/73
[2022-07-13] MEDS: MIRALAX *UNIT DOSE* 17GM PACKET PO SCH ×2 (08:25→21:58)
[2022-07-13] MEDS: CARVedilol 6.25 MG TAB PO SCH ×2 (08:25→22:02)
[2022-07-13] MEDS: TAMSULOSIN 0.4 MG CAP PO SCH (08:25)
[2022-07-13] MEDS: SENOKOT S TAB PO SCH ×2 (08:25→21:59)
[2022-07-13 12:00] VITALS: BP 145/65
[2022-07-13] MEDS ORDERED: MORPHINE 10MG/0.5ML ORAL CONCENTRATE SOLUTION U/D SL PRN (12:20)
[2022-07-13] MEDS ORDERED: FUROSEMIDE 20MG/2ML VIAL IV ONE (12:25)
[2022-07-13] MEDS: ACETAMINOPHEN TAB 650MG DOSE (2X325MG) PO PRN (12:52)
[2022-07-13] MEDS: ENOXAPARIN 40MG/0.4ML SYRINGE (J1650 PER 10MG) SC SCH (13:05)
[2022-07-13] MEDS: ramipriL 5 MG CAP PO SCH (13:06)
[2022-07-13] MEDS: ASPIRIN 81MG ENTERIC TABLET PO SCH (13:06)
[2022-07-13 15:35] VITALS: BP 128/69
[2022-07-13 18:20] VITALS: BP 118/53
[2022-07-13] MEDS: allopurinoL 300 MG TAB PO SCH (21:58)
[2022-07-13] MEDS: LORATADINE 10 MG TAB PO SCH (21:58)
[2022-07-13] MEDS: ATORVASTATIN 20 MG TAB PO SCH (21:59)
[2022-07-13 22:04] VITALS: BP 136/62
[2022-07-14] MEDS: NS 1,000 ML IV SCH (01:05)
[2022-07-14] MEDS: ACETAMINOPHEN TAB 650MG DOSE (2X325MG) PO PRN (01:42)
[2022-07-14 05:12] VITALS: BP 129/64
[2022-07-14 06:37] LABS: BASO # 0.1 10^3/uL (0.0-0.2); BASO % 0.6 % (0.0-1.0); EOS # 0.1 10^3/uL (0.0-0.5); HEMOGLOBIN 10.7 g/dl (13.5-17.5); LYMPH # 1.7 10^3/uL (1.5-5.0); LYMPH % 16.4 % (24.0-44.0); MEAN CORPUSCULAR HEMOGLOBIN 30.6 pg (27.0-33.0); MEAN CORPUSCULAR HGB CONC 31.5 g/dl (32.0-36.5); MEAN CORPUSCULAR VOLUME 97.1 fl (80.0-96.0); MONO # 0.9 10^3/uL (0.0-0.8); MONO % 8.7 % (2.0-8.0); NEUTROPHILS # 7.5 10^3/uL (1.5-8.5); NEUTROPHILS % 72.8 % (36.0-66.0); PLATELET COUNT, AUTOMATED 209 10^3/uL (150-450); WHITE BLOOD COUNT 10.3 10^3/uL (4.0-10.0)
[2022-07-14 06:48] LABS: BLOOD UREA NITROGEN 27 MG/DL (9-23); CALCIUM LEVEL 10.2 MG/DL (8.3-10.6); CARBON DIOXIDE LEVEL 25 MMOL/L (20-31); CHLORIDE LEVEL 110 MMOL/L (98-107); CREATININE FOR GFR 1.06 MG/DL (0.70-1.30); GLOMERULAR FILTRATION RATE > 60.0 (>42); GLUCOSE, FASTING 99 MG/DL (74-106); POTASSIUM SERUM 4.4 MMOL/L (3.5-5.1); SODIUM LEVEL 141 MMOL/L (136-145)
[2022-07-14] MEDS: INSULIN LISPRO (NovoLOG) PER UNIT SC SCH ×4 (07:30→20:32)
[2022-07-14] MEDS: NYSTATIN CREAM 15GM TOP SCH ×2 (09:00→20:37)
[2022-07-14] MEDS: ASPIRIN 81MG ENTERIC TABLET PO SCH (09:36)
[2022-07-14] MEDS: ramipriL 5 MG CAP PO SCH (09:36)
[2022-07-14] MEDS: MIRALAX *UNIT DOSE* 17GM PACKET PO SCH ×2 (09:36→20:36)
[2022-07-14] MEDS: TAMSULOSIN 0.4 MG CAP PO SCH (09:36)
[2022-07-14] MEDS: CARVedilol 6.25 MG TAB PO SCH ×2 (09:36→20:36)
[2022-07-14] MEDS: SENOKOT S TAB PO SCH ×2 (09:36→20:36)
[2022-07-14] MEDS: ENOXAPARIN 40MG/0.4ML SYRINGE (J1650 PER 10MG) SC SCH (09:37)
[2022-07-14] MEDS: NYSTATIN 100,000 UNITS/GM TOPICAL PWD 15GM TOP PRN (09:41)
[2022-07-14 14:00] VITALS: BP 115/60
[2022-07-14] MEDS: ATORVASTATIN 20 MG TAB PO SCH (20:36)
[2022-07-14] MEDS: LORATADINE 10 MG TAB PO SCH (20:36)
[2022-07-14] MEDS: allopurinoL 300 MG TAB PO SCH (20:37)
[2022-07-15 05:33] VITALS: BP 114/62
[2022-07-15] MEDS: INSULIN LISPRO (NovoLOG) PER UNIT SC SCH ×4 (07:21→19:52)
[2022-07-15] MEDS: ASPIRIN 81MG ENTERIC TABLET PO SCH (09:38)
[2022-07-15] MEDS: TAMSULOSIN 0.4 MG CAP PO SCH (09:38)
[2022-07-15] MEDS: ENOXAPARIN 40MG/0.4ML SYRINGE (J1650 PER 10MG) SC SCH (09:38)
[2022-07-15] MEDS: SENOKOT S TAB PO SCH ×2 (09:39→20:05)
[2022-07-15] MEDS: AZELASTINE 137MCG NASAL SPY 30 ML (ASTELIN) SCH ×2 (09:39→20:06)
[2022-07-15] MEDS: FLUTICASONE PROP 0.05% NASAL SPRAY 16 GM (FLONASE) NARES SCH ×2 (09:39→20:06)
[2022-07-15] MEDS: MIRALAX *UNIT DOSE* 17GM PACKET PO SCH ×2 (09:39→20:05)
[2022-07-15] MEDS: CARVedilol 6.25 MG TAB PO SCH ×2 (09:41→20:09)
[2022-07-15] MEDS: NYSTATIN CREAM 15GM TOP SCH ×2 (09:41→20:06)
[2022-07-15] MEDS: ramipriL 5 MG CAP PO SCH (09:42)
[2022-07-15] MEDS: ACETAMINOPHEN TAB 650MG DOSE (2X325MG) PO PRN (14:11)
[2022-07-15] MEDS: ATORVASTATIN 20 MG TAB PO SCH (20:05)
[2022-07-15] MEDS: allopurinoL 300 MG TAB PO SCH (20:05)
[2022-07-15] MEDS: LORATADINE 10 MG TAB PO SCH (20:06)
[2022-07-16 05:49] VITALS: BP 126/64
[2022-07-16] MEDS: INSULIN LISPRO (NovoLOG) PER UNIT SC SCH ×4 (07:30→20:41)
[2022-07-16] MEDS: ASPIRIN 81MG ENTERIC TABLET PO SCH (08:55)
[2022-07-16] MEDS: TAMSULOSIN 0.4 MG CAP PO SCH (08:55)
[2022-07-16] MEDS: ENOXAPARIN 40MG/0.4ML SYRINGE (J1650 PER 10MG) SC SCH (08:56)
[2022-07-16] MEDS: SENOKOT S TAB PO SCH ×2 (08:56→20:40)
[2022-07-16] MEDS: ramipriL 5 MG CAP PO SCH (08:56)
[2022-07-16] MEDS: MIRALAX *UNIT DOSE* 17GM PACKET PO SCH ×2 (08:57→20:40)
[2022-07-16] MEDS: FLUTICASONE PROP 0.05% NASAL SPRAY 16 GM (FLONASE) NARES SCH ×2 (08:57→20:43)
[2022-07-16] MEDS: AZELASTINE 137MCG NASAL SPY 30 ML (ASTELIN) SCH ×2 (08:57→20:43)
[2022-07-16] MEDS: CARVedilol 6.25 MG TAB PO SCH ×2 (08:57→20:43)
[2022-07-16] MEDS: NYSTATIN CREAM 15GM TOP SCH ×2 (08:58→20:45)
[2022-07-16 20:00] VITALS: BP 127/63
[2022-07-16] MEDS: allopurinoL 300 MG TAB PO SCH (20:43)
[2022-07-16] MEDS: LORATADINE 10 MG TAB PO SCH (20:43)
[2022-07-16] MEDS: ATORVASTATIN 20 MG TAB PO SCH (20:43)
[2022-07-16] MEDS: NYSTATIN 100,000 UNITS/GM TOPICAL PWD 15GM TOP PRN (20:45)
[2022-07-17 05:10] VITALS: BP 126/66
[2022-07-17] MEDS: INSULIN LISPRO (NovoLOG) PER UNIT SC SCH (07:12)
[2022-07-17] MEDS: SENOKOT S TAB PO SCH (07:38)
[2022-07-17] MEDS: MIRALAX *UNIT DOSE* 17GM PACKET PO SCH (07:38)
[2022-07-17] MEDS: TAMSULOSIN 0.4 MG CAP PO SCH (08:05)
[2022-07-17] MEDS: ASPIRIN 81MG ENTERIC TABLET PO SCH (08:05)
[2022-07-17 08:06] VITALS: BP 126/64
[2022-07-17] MEDS: ramipriL 5 MG CAP PO SCH (08:06)
[2022-07-17] MEDS: CARVedilol 6.25 MG TAB PO SCH (08:06)
[2022-07-17] MEDS: FLUTICASONE PROP 0.05% NASAL SPRAY 16 GM (FLONASE) NARES SCH (08:07)
[2022-07-17] MEDS: NYSTATIN 100,000 UNITS/GM TOPICAL PWD 15GM TOP PRN (08:07)
[2022-07-17] MEDS: AZELASTINE 137MCG NASAL SPY 30 ML (ASTELIN) SCH (08:07)
[2022-07-17] MEDS: ENOXAPARIN 40MG/0.4ML SYRINGE (J1650 PER 10MG) SC SCH (08:07)
[2022-07-17] MEDS ORDERED: MIRA1POW3 PO (08:49)
[2022-07-17] MEDS ORDERED: MORP1SOL5 PO (08:49)
[2022-07-17] MEDS ORDERED: ATIV1TAB10 PO (08:49)
[2022-07-17] MEDS ORDERED: HYOS125TA PO (08:49)
[2022-07-17] MEDS ORDERED: SENN-52 PO (08:49)
[2022-07-17] MEDS ORDERED: NYST-13 TOP (08:49)
[2022-07-17] MEDS: NYSTATIN CREAM 15GM TOP SCH (09:00)
== END 2022-07-17 11:41 | disposition home or self-care (01) | DRG 378 ==
LOC: M ED 13:14 → M ED INP 18:39 → ENRESERV 19:58 → M PCU 21:55 → M MSPAV 07-13 18:10
PROVIDERS: ADMIT Internal Medicine; ATTEND Family Medicine
DX: K92.1 Melena (principal); I50.32 Chronic diastolic (congestive) heart failure; C79.51 Secondary malignant neoplasm of bone; C78.00 Secondary malignant neoplasm of unspecified lung; I13.0 Hypertensive heart and chronic kidney disease with heart failure and stage 1 through stage 4 chronic kidney disease, or unspecified chronic kidney disease; C22.1 Intrahepatic bile duct carcinoma; C22.8 Malignant neoplasm of liver, primary, unspecified as to type; I27.20 Pulmonary hypertension, unspecified; F03.90 Unspecified dementia, unspecified severity, without behavioral disturbance, psychotic disturbance, mood disturbance, and anxiety; E11.22 Type 2 diabetes mellitus with diabetic chronic kidney disease; N18.9 Chronic kidney disease, unspecified; Z79.4 Long term (current) use of insulin; E78.5 Hyperlipidemia, unspecified; I48.91 Unspecified atrial fibrillation; Z95.0 Presence of cardiac pacemaker; M10.9 Gout, unspecified; Z66 Do not resuscitate; R19.7 Diarrhea, unspecified; R33.9 Retention of urine, unspecified; E83.52 Hypercalcemia; K59.00 Constipation, unspecified; Z88.0 Allergy status to penicillin; Z91.030 Bee allergy status; Z88.8 Allergy status to other drugs, medicaments and biological substances; Z79.899 Other long term (current) drug therapy; Z92.3 Personal history of irradiation; I69.392 Facial weakness following cerebral infarction